=== PATIENT | female | born 1960 | race Caucasian/White ===

== ENCOUNTER → 2016-07-10 | Outpatient (CLI) | payer MEDICARE, MEDICAID ==
--- NOTE | 2016-07-10 12:40 | RAD ---
EXAM DESCRIPTION: XR KNEE 4 OR MORE VIEWS CLINICAL HISTORY: STRESS FRACTURE COMPARISON: April 14, 2016 IMPRESSION: Three standing views of the left knee show linear area of sclerosis involving the medial aspect of the proximal tibia that could represent healed stress fracture seen in this location on previous MRI. No depression or incongruity of the articular surface is identified. The osseous structures are diffusely osteopenic limiting evaluation for subtle nondisplaced fractures. No obvious joint effusion is seen. Electronically signed by: Michael Hunt MD 07/10/2016 12:37
== END ==
LOC: RAD 08:26
PROVIDERS: ATTEND Orthopaedic Surgery
DX: M84.30XD Stress fracture, unspecified site, subsequent encounter for fracture with routine healing (principal)

== ENCOUNTER → 2016-07-29 | Outpatient (CLI) | payer MEDICARE, MEDICAID ==
--- NOTE | 2016-07-29 13:55 | RAD ---
EXAM DESCRIPTION: XR CHEST 2 VIEWS CLINICAL HISTORY: COPD COMPARISON: None Available. TECHNIQUE: PA/lateral FINDINGS: There is no cardiac or pulmonary abnormality. The lungs are clear. The AP diameter of the chest is increased which can be seen in setting of emphysema. There is no effusion. IMPRESSION: No acute findings on today's study. Electronically signed by: Tk Rincon MD 07/29/2016 13:53
== END | disposition home or self-care (01) ==
LOC: YCFC.O 11:05
PROVIDERS: ATTEND Nurse Practitioner Family
DX: R30.0 Dysuria (principal); J44.9 Chronic obstructive pulmonary disease, unspecified

== ENCOUNTER 2016-08-05 16:00 | Emergency (ER) | payer MEDICARE, MEDICAID ==
[2016-08-05 16:31] VITALS: TEMP 98.9
[2016-08-05] MEDS ORDERED: LACTATED RINGERS 1,000 ML IVS ONE (16:38)
[2016-08-05] MEDS ORDERED: IPRATROPIUM/ALBUTEROL 3 ML VIAL NEB ONE (16:38)
--- NOTE | 2016-08-05 16:53 | RAD ---
EXAM DESCRIPTION: XR CHEST 1 VIEW CLINICAL HISTORY: hypotension COMPARISON: July 29, 2016 IMPRESSION: Single AP portable upright view of the chest shows cardiac silhouette and pulmonary vasculature to be within normal limits. Lungs are hyperinflated without acute appearing infiltrate or consolidation. Mild eventration of the right hemidiaphragm is seen. No pleural effusion or pneumothorax is identified. Electronically signed by: Michael Hunt MD 08/05/2016 16:51
[2016-08-05] MEDS ORDERED: ACETAMINOPHEN 325 MG TAB PO ONE (17:29)
[2016-08-05] MEDS ORDERED: THIAMINE HCL INJ 100 MG/ML VIAL ONE (17:42)
[2016-08-05] MEDS ORDERED: SODIUM CHLORIDE 0.9% 100ML 100 ML IVPB ONE (17:44)
[2016-08-05 19:15] VITALS: O2SAT 96
--- NOTE | 2016-08-05 19:51 | ED.PDOC ---
History of Present Illness - General Chief Complaint: Cardiovascular Problem Stated Complaint: low BP, dizziness Time Seen by Provider: 08/05/16 16:32 Source: patient Exam Limitations: no limitations - History of Present Illness Initial Comments: the patient is a 55-year-old female presenting to the emergency room secondary tomild headache, mild dizziness, generalized weakness and mild fatigue for the last 24 hours. The patient has upper respiratory tract symptoms and has been taking some aobp-cag-rveunhb cough medications. She additionally does take Depakote, Lyrica and trazodone chronically. Additionally she does have borderline hypotension at baseline along with borderline bradycardia at baseline. She is technically tilt positive here today and has had a history of being mildly dehydrated in the past. Mild sore throat and runny nose. No nausea or vomiting. No chest pain or shortness of breath. No syncope or near syncope. No palpitations. She is very thin. Timing/Duration: 24 hours Severity: mild Improving Factors: nothing Worsening Factors: nothing Associated Symptoms: weakness Allergies/Adverse Reactions: Allergies Cephalexin [From Keflex] Allergy (Verified 06/14/16 22:27) Home Medications: Ambulatory Orders Albuterol Sulfate Nebs [Proventil Nebs] 2.5 mg INH Q4-6H PRN 03/22/14 Budesonide-Formoterol Fumarate [Symbicort 160-4.5 Mcg/Act] 1 aer IN BID Potassium Chloride Microencaps [Klor-Con M10] 10 meq PO TIDFD 03/22/14 Pregabalin [Lyrica] 75 mg PO TID 03/22/14 Trazodone HCl 100 mg PO BEDTIME 03/22/14 Divalproex Sodium [Depakote] 150 - 275 mg PO BEDTIME 04/14/16 Sucralfate Tab [Carafate Tab] 1 gm PO TID 04/14/16 Review of Systems - Review of Systems Constitutional: States: malaise, weakness EENTM: States: nose congestion, throat pain - mild Respiratory: States: no symptoms reported Cardiology: States: no symptoms reported Gastrointestinal/Abdominal: States: no symptoms reported Genitourinary: States: no symptoms reported Musculoskeletal: States: no symptoms reported Skin: States: no symptoms reported Neurological: States: headache - mild, weakness Endocrine: States: no symptoms reported All other Systems: No Change from Baseline Past Medical History (General) - Patient Medical History Hx Seizures: No Hx Stroke: No Hx Asthma: No Hx of COPD: Yes Hx Cardiac Disorders: No Hx Congestive Heart Failure: No Hx Pacemaker: No Hx Hypertension: No Hx Diabetes: No Hx MRSA: No - Vaccination History Hx Tetanus, Diphtheria Vaccination: Yes Hx Influenza Vaccination: Yes - 2015 Hx Pneumococcal Vaccination: Yes - 2013 - Social History Hx Tobacco Use: Yes Hx Chewing Tobacco Use: No Hx Alcohol Use: No Hx Substance Use: No Hx Substance Use Treatment: No Hx Depression: Yes Hx Physical Abuse: No Hx Emotional Abuse: No Hx Suspected Abuse: No - Female History Patient is a Female of Child Bearing Age (10 -59 yrs old): No Patient : No Family Medical History - Family History Father Living Status: Age at (years of age): 65 Cause of : renal cancer Mother Living Status: Hx Family Asthma: No Hx Family Congestive Heart Failure: No Hx Family Hypertension: Yes Hx Family Stroke: No Hx Cardiac Disease: No Hx Family Diabetes: Yes Hx Family Cancer: No Physical Exam - Physical Exam General Appearance: Alert, Comfortable, No apparent distress Eye Exam: bilateral normal Ears, Nose, Throat: normal ENT inspection, normal pharynx Neck: non-tender, full range of motion, supple Respiratory: chest non-tender, lungs clear, normal breath sounds, no respiratory distress Cardiovascular/Chest: normal peripheral pulses, no edema, bradycardia - mild Peripheral Pulses: radial,right: 2+, radial,left: 2+, dorsalis pedis,right: 2+, dorsalis pedis,left: 2+ Gastrointestinal/Abdominal: non tender, soft Rectal Exam: deferred Back Exam: normal inspection, no CVA tenderness, no vertebral tenderness Extremity: normal range of motion, non-tender, normal inspection, no pedal edema , normal capillary refill 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 Progress - Progress Progress: 08/05/16 19:53 the patient is a 55-year-old female presenting with symptoms related to mild hypotension and bradycardia. she has apparently borderline hypotensive at baseline. The patient received a liter of IV fluids and some Tylenol and is feeling better at this time. Blood pressures have corrected. I suspect that the hypotension has been due to several factors including mild dehydration in combination with her normal daily medications in combination with her cold medication that she is recently been taking. Recommend she stop taking the cold medications. Also recommend that she hold her trazodone and Lyrica for 1 day. I recommend she follow-up with her primary care doctor towards the end of the week for reevaluation. If hypotension becomes a recurrent problem then an echocardiogram may be worthwhile. I have encouraged her to try to gain 5 pounds of weight. She can increase his salt intake and her food as well. Headache was relieved with Tylenol and IV fluids. If it recurs significantly in a normotensive state then further evaluation may be warranted. The patient is to follow-up with her primary care doctor before the end of the week. ER warnings are given for any acute worsening. - Results/Orders Results/Orders: 08/05/16 16:37 Telemetry .CONTINUOUS Vital Signs-Tilt PRN EKG Assessment ONCE 08/05/16 16:45 EKG STAT sinus bradycardia. Low voltage. Mild axis deviation likely related to body habitus. 08/05/16 19:06 UA [URINALYSIS] Stat grossly within normal limits. 08/06/16 16:38 Thiamine HCl Inj 100 mg Sodium Chloride 0.9% 100Ml [NS (NACL 0.9%) 100ml] 100 ml IVPB ONCE Laboratory Results - last 24 hr 08/05/16 08/05/16 16:50 19:07 WBC 6.5 RBC 4.71 Hgb 12.2 Hct 38.6 MCV 82.0 MCH 25.8 L MCHC 31.5 L RDW 18.6 H Plt Count 173 MPV 8.7 Absolute Neuts (auto) 3.90 Absolute Lymphs (auto) 2.00 Absolute Monos (auto) 0.60 Absolute Eos (auto) 0.10 Absolute Basos (auto) 0.00 Neutrophils % 59.3 Lymphocytes % 30.7 Monocytes % 8.8 Eosinophils % 0.9 L Basophils % 0.3 D-Dimer, Quantitative < 200 Sodium 138 Potassium 3.9 Chloride 104 Carbon Dioxide 27 Anion Gap 10.9 L BUN 17 Creatinine 0.50 L BUN/Creatinine Ratio 34.0 H Random Glucose 89 Serum Osmolality 276.7 Calcium 8.0 L Magnesium 1.2 L Total Bilirubin < 0.2 L AST 19 ALT 13 Alkaline Phosphatase 76 Creatine Kinase 91 CK-MB (CK-2) 3.8 CK-MB (CK-2) % Not Reportable Troponin I < 0.02 B-Natriuretic Peptide 14.7 Serum Total Protein 5.6 L Albumin 2.9 L Globulin 2.7 Albumin/Globulin Ratio 1.1 TSH 3.11 Urine Color Yellow Urine Appearance Clear Urine pH 5.5 Ur Specific Sibley <= 1.005 Urine Protein Negative Urine Glucose (UA) Negative Urine Ketones Negative Urine Blood Negative Urine Nitrite Negative Urine Bilirubin Negative Urine Urobilinogen 0.2 Ur Leukocyte Esterase Negative Urine RBC 0-1 Urine WBC 0-1 Ur Epithelial Cells 0-1 Amorphous Sediment 4+ Urine Bacteria Rare chest x-ray shows changes consistent with COPD. Departure - Departure Clinical Impression: Hypotension due to drugs Disposition: Discharge to Home or Self Care Condition: Fair Departure Forms: ED Discharge - Pt. Copy, Patient Portal Self Enrollment Diet: regular diet Activity: increase activity as tolerated Referrals: Luh Pina NP [Primary Care Provider] - 1-5 Days Home Medications: Ambulatory Orders Albuterol Sulfate Nebs [Proventil Nebs] 2.5 mg INH Q4-6H PRN 03/22/14 Budesonide-Formoterol Fumarate [Symbicort 160-4.5 Mcg/Act] 1 aer IN BID Potassium Chloride Microencaps [Klor-Con M10] 10 meq PO TIDFD 03/22/14 Pregabalin [Lyrica] 75 mg PO TID 03/22/14 Trazodone HCl 100 mg PO BEDTIME 03/22/14 Divalproex Sodium [Depakote] 150 - 275 mg PO BEDTIME 04/14/16 Sucralfate Tab [Carafate Tab] 1 gm PO TID 04/14/16 Additional Instructions: the patient is a 55-year-old female presenting with symptoms related to mild hypotension and bradycardia. she has apparently borderline hypotensive at baseline. The patient received a liter of IV fluids and some Tylenol and is feeling better at this time. Blood pressures have corrected. I suspect that the hypotension has been due to several factors including mild dehydration in combination with her normal daily medications in combination with her cold medication that she is recently been taking. Recommend she stop taking the cold medications. Also recommend that she hold her trazodone and Lyrica for 1 day. I recommend she follow-up with her primary care doctor towards the end of the week for reevaluation. If hypotension becomes a recurrent problem then an echocardiogram may be worthwhile. I have encouraged her to try to gain 5 pounds of weight. She can increase his salt intake and her food as well. Headache was relieved with Tylenol and IV fluids. If it recurs significantly in a normotensive state then further evaluation may be warranted. The patient is to follow-up with her primary care doctor before the end of the week. ER warnings are given for any acute worsening.
[2016-08-05 20:44] VITALS: BP 119/58
[2016-08-06] MEDS ORDERED: THIAMINE HCL INJ 100 MG in SODIUM CHLORIDE 0.9% 100ML 100 ML IVPB ONE (16:38)
== END 2016-08-05 20:43 | disposition home or self-care (01) ==
LOC: ER 16:00
DX: I95.2 Hypotension due to drugs (principal); J44.9 Chronic obstructive pulmonary disease, unspecified; R00.1 Bradycardia, unspecified; Z79.899 Other long term (current) drug therapy; Z88.8 Allergy status to other drugs, medicaments and biological substances; Z87.891 Personal history of nicotine dependence; E86.0 Dehydration
CPT/HCPCS: 36415; 71010; 80053; 81001; 82550; 82553; 83735; 83880; 84443; 84484; 85025; 85379; J3411; J7050; J7120; J7620

== ENCOUNTER → 2016-08-15 | Outpatient (CLI) | payer MEDICARE, MEDICAID ==
--- NOTE | 2016-08-16 07:43 | RAD ---
EXAM DESCRIPTION: Left knee, three views. CLINICAL HISTORY: Stress fracture. Knee pain. FINDINGS/IMPRESSION: Osteopenia. Subtle minimal sclerosis in the medial tibia posterior at the metaphysis epiphysis junction. This could be stress related edema. Consider MRI evaluation No advanced osteoarthritis. No joint effusion Electronically signed by: Marcellus Sommers MD 08/16/2016 07:41
== END | disposition home or self-care (01) ==
LOC: RAD 08:30
PROVIDERS: ATTEND Orthopaedic Surgery
DX: M84.30XD Stress fracture, unspecified site, subsequent encounter for fracture with routine healing (principal)

== ENCOUNTER → 2016-09-11 | Outpatient (CLI) | payer MEDICARE, MEDICAID ==
--- NOTE | 2016-09-11 08:41 | RAD ---
EXAM DESCRIPTION: Left knee, 3 views CLINICAL HISTORY: Knee pain. Stress fracture FINDINGS/ IMPRESSION: Comparison 08/15/2016 The sclerosis involving the medial tibia is less than on the prior study compatible with improved stress injury. No linear fracture. There is still subtle sclerosis Osteopenia without fracture or acute osteochondral lesion otherwise seen. No joint effusion. Small intra-articular body in the posterior joint, stable. Faint chondrocalcinosis patellofemoral and lateral femorotibial Electronically signed by: Marcellus Sommers MD 09/11/2016 8:41 AM CDT
== END ==
LOC: RAD 08:00
PROVIDERS: ATTEND Orthopaedic Surgery
DX: M84.30XD Stress fracture, unspecified site, subsequent encounter for fracture with routine healing (principal)

== ENCOUNTER → 2016-09-23 | Outpatient (CLI) | payer MEDICARE, MEDICAID ==
--- NOTE | 2016-09-23 15:16 | RAD ---
EXAM DESCRIPTION: Toes,Left CLINICAL HISTORY: 55 years, Female, PAIN IN LEFT TOES COMPARISON: None. FINDINGS: Left toes demonstrate no fracture or other acute bony abnormalities. There is generalized osteopenia. Joint spaces soft tissues unremarkable. IMPRESSION: Unremarkable left toes except there is generalized osteopenia. Electronically signed by: Roberto Carlos Lawson MD 09/23/2016 3:16 PM CDT
== END | disposition home or self-care (01) ==
LOC: YCFC.O 13:08
PROVIDERS: ATTEND Nurse Practitioner Family
DX: K21.9 Gastro-esophageal reflux disease without esophagitis (principal); M79.675 Pain in left toe(s)

== ENCOUNTER 2016-10-22 16:18 | Emergency (ER) | payer MEDICARE, MEDICAID ==
[2016-10-22 17:04] VITALS: TEMP 98.7
[2016-10-22] MEDS ORDERED: SODIUM CHLORIDE 0.9% 1000ML 1,000 ML IVS ONE (17:05)
--- NOTE | 2016-10-22 17:08 | ED.PDOC ---
History of Present Illness - General Chief Complaint: Respiratory Problem Stated Complaint: cough headache nausea right arm pain Time Seen by Provider: 10/22/16 16:59 Source: patient, RN notes reviewed, Vital Signs reviewed Exam Limitations: no limitations - History of Present Illness Initial Comments: Patient presents with c/o cough X 5 days, R arm pain X 4 days, HURD today and leg cramps for a couple days. No fever or chills. Hx of COPD. Whole R arm hurts, not one spot in particular. Cough is productive of green sputum. HURD is generalized and pounding. Timing/Duration: 1 week Severity: moderate Improving Factors: nothing Worsening Factors: nothing Associated Symptoms: cough, headaches, malaise, nausea/vomiting, weakness Allergies/Adverse Reactions: Allergies Cephalexin [From Keflex] Allergy (Verified 10/22/16 17:04) Home Medications: Ambulatory Orders Albuterol Sulfate Nebs [Proventil Nebs] 2.5 mg INH Q4-6H PRN 03/22/14 Budesonide-Formoterol Fumarate [Symbicort 160-4.5 Mcg/Act] 1 aer IN BID Potassium Chloride Microencaps [Klor-Con M10] 10 meq PO TIDFD 03/22/14 Pregabalin [Lyrica] 75 mg PO TID 03/22/14 Trazodone HCl 100 mg PO BEDTIME 03/22/14 Divalproex Sodium [Depakote] 150 - 275 mg PO BEDTIME 04/14/16 Sucralfate Tab [Carafate Tab] 1 gm PO TID 04/14/16 Azithromycin Tab [Zithromax] 250 mg PO QD #4 tab 10/22/16 Review of Systems - Review of Systems Constitutional: States: malaise, weakness. Denies: chills, fever EENTM: States: no symptoms reported Respiratory: States: cough, short of breath Cardiology: States: no symptoms reported. Denies: chest pain, palpitations, syncope Gastrointestinal/Abdominal: States: nausea, vomiting. Denies: abdominal pain, diarrhea Musculoskeletal: States: other - R arm pain - whole arm Skin: States: no symptoms reported Neurological: States: headache, numbness - occasionally in right hand. Denies: paresthesia, tingling, tremors, weakness Endocrine: Denies: no symptoms reported Past Medical History (General) - Patient Medical History Hx Seizures: No Hx Stroke: No Hx Asthma: No Hx of COPD: Yes Hx Cardiac Disorders: No Hx Congestive Heart Failure: No Hx Pacemaker: No Hx Hypertension: No Hx Diabetes: No Hx MRSA: No Surgical History: Hysterectomy, other - Vaccination History Hx Tetanus, Diphtheria Vaccination: Yes Hx Influenza Vaccination: Yes Hx Pneumococcal Vaccination: Yes - Social History Hx Tobacco Use: Yes Hx Chewing Tobacco Use: No Hx Alcohol Use: No Hx Substance Use: No Hx Substance Use Treatment: No Hx Depression: Yes Hx Physical Abuse: No Hx Emotional Abuse: No Hx Suspected Abuse: No - Activities of Daily Living Hospice Agency (if applicable):: None - Female History Patient is a Female of Child Bearing Age (10 -59 yrs old): No Patient : No Family Medical History - Family History Father Living Status: Age at (years of age): 65 Cause of : renal cancer Mother Living Status: Hx Family Asthma: No Hx Family Congestive Heart Failure: No Hx Family Hypertension: Yes Hx Family Stroke: No Hx Cardiac Disease: No Hx Family Diabetes: Yes Hx Family Cancer: No Physical Exam - Physical Exam General Appearance: Alert, Comfortable, Frail, No apparent distress, Well Groomed Eye Exam: bilateral normal Ears, Nose, Throat: hearing grossly normal, normal ENT inspection, normal pharynx Neck: non-tender, full range of motion, supple, normal inspection Respiratory: chest non-tender, no respiratory distress, no accessory muscle use , decreased breath sounds - Bilateral bases Cardiovascular/Chest: regular rate, rhythm, no edema, no gallop, no JVD, no murmur Extremity: normal range of motion, normal inspection, other - whole R arm from shoulder to wrist tender to palpation 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 She is feeling better after IV fluids but still has a HURD. Will start Antibiotics for probable bronchitis and give Ibuprofen for HURD. - Results/Orders Results/Orders: Laboratory Tests 10/22/16 10/22/16 17:10 17:10 WBC 8.2 RBC 4.35 Hgb 11.9 L Hct 36.7 MCV 84.3 MCH 27.3 MCHC 32.4 L RDW 16.4 H Plt Count 201 MPV 8.2 Absolute Neuts (auto) 5.00 Absolute Lymphs (auto) 2.20 Absolute Monos (auto) 0.80 Absolute Eos (auto) 0.10 Absolute Basos (auto) 0.10 Neutrophils % 60.3 Lymphocytes % 27.2 Monocytes % 10.0 H Eosinophils % 1.4 Basophils % 1.1 Sodium 138 Potassium 3.5 L Chloride 107 Carbon Dioxide 24 Anion Gap 10.5 L BUN 13 Creatinine 0.44 L BUN/Creatinine Ratio 29.5 H Random Glucose 91 Serum Osmolality 275.4 Calcium 8.4 Total Bilirubin 0.4 AST 21 ALT 13 Alkaline Phosphatase 54 Serum Total Protein 5.3 L Albumin 3.0 L Globulin 2.3 Albumin/Globulin Ratio 1.3 - EKG/XRAY/CT XRAY: chest - No acute process Departure - Departure Clinical Impression: Dehydration, Acute bronchitis Time of Disposition: 18:14 Disposition: Discharge to Home or Self Care Condition: Good Departure Forms: ED Discharge - Pt. Copy, Patient Portal Self Enrollment Instructions: DI for Acute Bronchitis Referrals: Luh Pina NP [Primary Care Provider] - 1-2 Weeks Prescriptions: Azithromycin Tab [Zithromax] 250 mg PO QD #4 tab Home Medications: Ambulatory Orders Albuterol Sulfate Nebs [Proventil Nebs] 2.5 mg INH Q4-6H PRN 03/22/14 Budesonide-Formoterol Fumarate [Symbicort 160-4.5 Mcg/Act] 1 aer IN BID Potassium Chloride Microencaps [Klor-Con M10] 10 meq PO TIDFD 03/22/14 Pregabalin [Lyrica] 75 mg PO TID 03/22/14 Trazodone HCl 100 mg PO BEDTIME 03/22/14 Divalproex Sodium [Depakote] 150 - 275 mg PO BEDTIME 04/14/16 Sucralfate Tab [Carafate Tab] 1 gm PO TID 04/14/16 Azithromycin Tab [Zithromax] 250 mg PO QD #4 tab 10/22/16
--- NOTE | 2016-10-22 17:28 | RAD ---
PROCEDURE: Chest,2 Views CLINICAL HISTORY: Cough X 5 days INDICATION: Same as above COMPARISON: August 05, 2016 TECHNIQUE: PA and and lateral chest radiographs were obtained. FINDINGS: The lung herrera are well inflated. There are no discrete airspace infiltrates, pneumothoraces or pleural effusions. The pulmonary vascularity is normal The cardiomediastinal silhouette is unremarkable for patient's age and sex. IMPRESSION: There is no acute pleural-parenchymal process seen in the imaged lung herrera. Place of interpretation: [facility]. Electronically signed by: Sadiq Vaca MD 10/22/2016 5:27 PM CDT
[2016-10-22] MEDS ORDERED: IBUPROFEN 200 MG TAB PO ONE (18:12)
[2016-10-22] MEDS ORDERED: AZITHROMYCIN 250 MG TAB PO ONE (18:13)
[2016-10-22 18:32] VITALS: BP 117/75; O2SAT 91
== END 2016-10-22 18:32 | disposition home or self-care (01) ==
LOC: ER 16:18
DX: J44.0 Chronic obstructive pulmonary disease with (acute) lower respiratory infection (principal); J20.9 Acute bronchitis, unspecified; E86.0 Dehydration; F32.9 Major depressive disorder, single episode, unspecified; Z87.891 Personal history of nicotine dependence; Z79.899 Other long term (current) drug therapy; Z88.3 Allergy status to other anti-infective agents
CPT/HCPCS: 36415; 71020; 80053; 85025; J7030; Q0144

== ENCOUNTER → 2016-11-13 | Outpatient (CLI) | payer MEDICARE, MEDICAID ==
--- NOTE | 2016-11-15 16:17 | MAM ---
History: Well woman exam. Date of exam: 11/13/2016 Services provided: Bilateral full field digital screening mammography. CAD, the images were reviewed with R2 computer aided detection. FINDINGS: Glandular tissue is scattered glandular contour with increased mammographic density. No prior study is currently available for comparison. Scattered grouped calcifications are present bilaterally, primarily rounded in morphology. No architectural distortion or dominant mass. IMPRESSION: Benign exam Recommendation: Routine annual mammography BIRAD CATEGORY: 2 BENIGN Electronically signed by: Shannon Henderson MD 11/15/2016 4:18 PM CDT Workstation: [id number]
== END ==
LOC: MAMMO 08:36
PROVIDERS: ATTEND Nurse Practitioner Family
DX: Z12.31 Encounter for screening mammogram for malignant neoplasm of breast (principal)

== ENCOUNTER → 2016-11-28 | Outpatient (CLI) | payer MEDICARE, MEDICAID | END | disposition home or self-care (01) | LOC: RAD 14:22 | PROVIDERS: ATTEND Nurse Practitioner Family | DX: M79.601 Pain in right arm (principal) ==

== ENCOUNTER 2017-01-04 19:51 | Emergency (ER) | payer MEDICARE, MEDICAID ==
--- NOTE | 2017-01-04 21:22 | ED.PDOC ---
History of Present Illness - General Chief Complaint: GI Problem Stated Complaint: diarrhea,low back pain,headache Time Seen by Provider: 01/04/17 19:51 Information Source: patient, Vital Signs reviewed Exam Limitations: no limitations - History of Present Illness Initial Comments: Jumana Samayoa 56 y/o female stated she had onset of diarrhea x 3,low back pain,and headache since yesterday.No N/V ,fever ,chills.No abdominal pains. Abdominal Pain Onset Location: other - none Pain Radiation: no radiation Timing/Duration: 24 hours Improving Factors: nothing Worsening Factors: eating Associated Symptoms: back pain, headache Review of Systems - Review of Systems Constitutional: States: no symptoms reported EENTM: States: no symptoms reported Respiratory: States: no symptoms reported Cardiology: States: no symptoms reported Gastrointestinal/Abdominal: States: see HPI Musculoskeletal: States: see HPI Neurological: States: headache Endocrine: States: no symptoms reported Past Medical History (General) - Patient Medical History Hx Seizures: No Hx Stroke: No Hx Asthma: No Hx of COPD: Yes Hx Cardiac Disorders: No Hx Congestive Heart Failure: No Hx Pacemaker: No Hx Hypertension: No Hx Diabetes: No Hx MRSA: No Surgical History: other - hysterectomy - Vaccination History Hx Tetanus, Diphtheria Vaccination: Yes Hx Influenza Vaccination: Yes Hx Pneumococcal Vaccination: Yes Immunizations Up to Date: Yes - Social History Hx Tobacco Use: Yes Hx Chewing Tobacco Use: No Hx Alcohol Use: No Hx Substance Use: No Hx Substance Use Treatment: No Hx Depression: No Feels Threatened In Home Enviroment: No Feels Threatened In a Relationship: No Hx Physical Abuse: No Hx Emotional Abuse: No Hx Suspected Abuse: No - Activities of Daily Living Hospice Agency (if applicable):: None - Female History Patient : No Family Medical History - Family History Father Living Status: Age at (years of age): 65 Cause of : renal cancer Mother Living Status: Hx Family Asthma: No Hx Family Congestive Heart Failure: No Hx Family Hypertension: Yes Hx Family Stroke: No Hx Cardiac Disease: No Hx Family Diabetes: Yes Hx Family Cancer: No Physical Exam - Physical Exam General Appearance: Alert, Comfortable, No apparent distress Eyes, Ears, Nose, Throat Exam: PERRL/EOMI, normal ENT inspection, TMs normal, pharynx normal Neck: non-tender, full range of motion, supple Respiratory: chest non-tender, no respiratory distress, decreased breath sounds Cardiovascular/Chest: normal peripheral pulses, regular rate, rhythm, no murmur Peripheral Pulses: No deficit Gastrointestinal/Abdominal: normal bowel sounds, non tender, soft, no organomegaly Extremity: normal range of motion, non-tender, normal inspection, no pedal edema , no calf tenderness Neurologic: no motor/sensory deficits, alert, normal mood/affect, oriented x 3 Skin Exam: normal color, warm/dry Lymphatic: no adenopathy Special Observations: No evidence of discomfort, Smiling Progress - Progress Progress: 01/04/17 23:38 Vital Signs - 8 hr 01/04/17 19:51 Temperature 98.5 F Pulse Rate [ 67 monitor] Respiratory 18 Rate Blood Pressure 110/70 [left upper arm ] O2 Sat by Pulse 90 L Oximetry 01/04/17 21:30 URINE CULTURE W/COLONY COUNT Stat Laboratory Results - last 24 hr 01/04/17 01/04/17 01/04/17 21:30 21:34 21:34 WBC 4.9 RBC 4.78 Hgb 12.8 Hct 40.1 MCV 83.8 MCH 26.7 L MCHC 31.9 L RDW 16.8 H Plt Count 192 MPV 8.8 Absolute Neuts (auto) 2.50 Absolute Lymphs (auto) 1.80 Absolute Monos (auto) 0.60 Absolute Eos (auto) 0.10 Absolute Basos (auto) 0.00 Neutrophils % 50.2 Lymphocytes % 35.8 Monocytes % 12.1 H Eosinophils % 1.3 Basophils % 0.6 Sodium 143 Potassium 4.0 Chloride 107 Carbon Dioxide 29 Anion Gap 11.0 L BUN 13 Creatinine < 0.40 L BUN/Creatinine Ratio 32.0 H Random Glucose 108 H Serum Osmolality 285.6 Calcium 9.1 Total Bilirubin 0.4 AST 20 ALT 13 Alkaline Phosphatase 53 Serum Total Protein 5.9 L Albumin 3.2 Globulin 2.7 Albumin/Globulin Ratio 1.2 Urine Color Yellow Urine Appearance Clear Urine pH 5.5 Ur Specific [place] <= 1.005 Urine Protein Negative Urine Glucose (UA) Negative Urine Ketones Negative Urine Blood Negative Urine Nitrite Negative Urine Bilirubin Negative Urine Urobilinogen 0.2 Ur Leukocyte Esterase Moderate H Urine RBC 0-1 Urine WBC 10-20 H Ur Epithelial Cells 1-3 Amorphous Sediment Trace Urine Bacteria Rare - EKG/XRAY/CT CT Ordered: No Departure - Departure Clinical Impression: Diarrhea, Backache symptom Headache Qualifiers: Headache type: unspecified Headache chronicity pattern: episodic headache Intractability: not intractable Qualified Code(s): R51 - Headache Urinary tract infection Qualifiers: Urinary tract infection type: site unspecified Hematuria presence: without hematuria Qualified Code(s): N39.0 - Urinary tract infection, site not specified Time of Disposition: 23:39 Disposition: Discharge to Home or Self Care Departure Forms: ED Discharge - Pt. Copy, Patient Portal Self Enrollment Diet: other - Avoid greasy,spicy,dairy foods until better Referrals: Luh Pina NP [Primary Care Provider] - 1-2 Weeks Prescriptions: Nitrofurantoin Monohydrate Mac [Macrobid] 100 mg PO BID #10 cap Home Medications: Ambulatory Orders Albuterol Sulfate Nebs [Proventil Nebs] 2.5 mg INH Q4-6H PRN 03/22/14 Budesonide-Formoterol Fumarate [Symbicort 160-4.5 Mcg/Act] 1 aer IN BID Potassium Chloride Microencaps [Klor-Con M10] 10 meq PO TIDFD 03/22/14 Pregabalin [Lyrica] 75 mg PO TID 03/22/14 Trazodone HCl 100 mg PO BEDTIME 03/22/14 Divalproex Sodium [Depakote] 150 - 275 mg PO BEDTIME 04/14/16 Sucralfate Tab [Carafate Tab] 1 gm PO TID 04/14/16 Azithromycin Tab [Zithromax] 250 mg PO QD #4 tab 10/22/16 Nitrofurantoin Monohydrate Mac [Macrobid] 100 mg PO BID #10 cap 01/04/17 Additional Instructions: Follow up with primary md 01/06/2017
[2017-01-04] MEDS ORDERED: ORPHENADRINE CITRATE 30 MG/ML AMP IV ONE (21:28)
[2017-01-04] MEDS ORDERED: KETOROLAC TROMETHAMINE INJ 30 MG/ML VIAL IV ONE (21:28)
[2017-01-04] MEDS ORDERED: SODIUM CHLORIDE 0.9% 1000ML 1,000 ML IVS ONE (21:29)
[2017-01-04] MEDS ORDERED: NITROFURANTOIN MONO (ER DISP) 100 MG CAP PO ONE (23:41)
[2017-01-05 00:12] VITALS: BP 130/70; TEMP 98; O2SAT 98
== END 2017-01-04 23:51 | disposition home or self-care (01) ==
LOC: ER 19:51
DX: R19.7 Diarrhea, unspecified (principal); N39.0 Urinary tract infection, site not specified; R51 Headache; M54.9 Dorsalgia, unspecified; J44.9 Chronic obstructive pulmonary disease, unspecified; Z87.891 Personal history of nicotine dependence
CPT/HCPCS: 36415; 80053; 81001; 85025; 87086; J1885; J2360; J7030

== ENCOUNTER → 2017-01-30 | Outpatient (CLI) | payer MEDICARE, MEDICAID | END | disposition home or self-care (01) | LOC: YCFC.O 16:01 | PROVIDERS: ATTEND Nurse Practitioner Family | DX: N39.0 Urinary tract infection, site not specified (principal); F50.89 Other specified eating disorder ==

== ENCOUNTER → 2017-02-14 | Outpatient (CLI) | payer MEDICARE, MEDICAID | END | disposition home or self-care (01) | LOC: YCFC.O 14:37 | PROVIDERS: ATTEND Nurse Practitioner Family | DX: R30.0 Dysuria (principal) ==

== ENCOUNTER → 2017-04-18 | Outpatient (CLI) | payer MEDICARE, MEDICAID ==
--- NOTE | 2017-04-20 00:31 | RAD ---
Examination: XR KNEE 4 OR MORE VIEWS dated 04/18/2017 12:00 AM CDT History: STRESS FX Comparison: 09/11/2016 Technique: Four views of the left knee FINDINGS AND IMPRESSION: Stable band of sclerosis involving the proximal tibial shaft which may be seen with a healed stress fracture. There is mild tricompartmental joint space loss with chondrocalcinosis. Electronically signed by: Maximiliano Boss MD 04/20/2017 12:30 AM CDT
== END | disposition home or self-care (01) ==
LOC: RAD 07:49
PROVIDERS: ATTEND Orthopaedic Surgery
DX: M84.30XD Stress fracture, unspecified site, subsequent encounter for fracture with routine healing (principal)

== ENCOUNTER → 2017-05-20 | Outpatient (CLI) | payer MEDICARE, MEDICAID | END | disposition home or self-care (01) | LOC: YCFC.O 14:47 | PROVIDERS: ATTEND Nurse Practitioner Family | DX: R50.9 Fever, unspecified (principal) ==

== ENCOUNTER 2017-07-11 17:40 | Emergency (ER) | payer MEDICARE, MEDICAID | END 2017-07-11 18:16 | disposition left against medical advice (07) | LOC: ER 17:40 | DX: Z53.21 Procedure and treatment not carried out due to patient leaving prior to being seen by health care provider (principal) ==

== ENCOUNTER 2017-07-11 20:46 | Emergency (ER) | payer MEDICARE, MEDICAID ==
[2017-07-11] MEDS ORDERED: LACTATED RINGERS 1,000 ML IVS ONE (21:18)
[2017-07-11] MEDS ORDERED: MORPHINE SULFATE INJ 10 MG/ML VIAL IV ONE (21:18)
[2017-07-11] MEDS ORDERED: PROMETHAZINE HCL INJ 25 MG/ML VIAL IM ONE (21:18)
--- NOTE | 2017-07-11 21:19 | ED.PDOC ---
History of Present Illness - General Chief Complaint: General Stated Complaint: diarrhea/body aches Time Seen by Provider: 07/11/17 21:16 Source: patient Exam Limitations: no limitations - History of Present Illness Initial Comments: Jumana Samayoa 56 y/o female stated that she had been having dysuria for the last 5 days and was prescribed antibiotics took it for 3 days but still feeling not better yesterday had started having flu like symptoms -body aches,no appetite but no chills or fever had 3 loose stools today no nausea or vomiting.Also with dry cough for one week. Timing/Duration: other - see hpi Severity: moderate Improving Factors: nothing Worsening Factors: nothing Associated Symptoms: other - see hpi Allergies/Adverse Reactions: Allergies Cephalexin [From Keflex] Allergy (Verified 01/04/17 20:33) Home Medications: Ambulatory Orders Albuterol Sulfate Nebs [Proventil Nebs] 2.5 mg INH Q4-6H PRN 03/22/14 Budesonide-Formoterol Fumarate [Symbicort 160-4.5 Mcg/Act] 1 aer IN BID Potassium Chloride Microencaps [Klor-Con M10] 10 meq PO TIDFD 03/22/14 Pregabalin [Lyrica] 75 mg PO TID 03/22/14 Trazodone HCl 100 mg PO BEDTIME 03/22/14 Divalproex Sodium [Depakote] 150 - 275 mg PO BEDTIME 04/14/16 Sucralfate Tab [Carafate Tab] 1 gm PO TID 04/14/16 Azithromycin Tab [Zithromax] 250 mg PO QD #4 tab 10/22/16 Nitrofurantoin Monohydrate Mac [Macrobid] 100 mg PO BID #10 cap 01/04/17 Ciprofloxacin [Cipro] 250 mg PO Q12H #14 tablet 07/11/17 SUMAtriptan SUCCINATE [Imitrex] 50 mg PO ONCE PRN #14 tab 07/11/17 Review of Systems - Review of Systems Constitutional: States: no symptoms reported EENTM: States: no symptoms reported Respiratory: States: no symptoms reported Cardiology: States: no symptoms reported Gastrointestinal/Abdominal: States: see HPI Genitourinary: States: see HPI Musculoskeletal: States: see HPI Skin: States: no symptoms reported Neurological: States: no symptoms reported All other Systems: Reviewed and Negative, No Change from Baseline Past Medical History (General) - Patient Medical History Hx Seizures: No Hx Stroke: No Hx Asthma: No Hx of COPD: Yes Hx Cardiac Disorders: No Hx Congestive Heart Failure: No Hx Pacemaker: No Hx Hypertension: No Hx Diabetes: No Hx MRSA: No Surgical History: other - hysterectomy - Vaccination History Hx Tetanus, Diphtheria Vaccination: Yes Hx Influenza Vaccination: Yes Hx Pneumococcal Vaccination: Yes - Social History Hx Tobacco Use: Yes Hx Chewing Tobacco Use: No Hx Alcohol Use: No Hx Substance Use: No Hx Substance Use Treatment: No Hx Depression: No Hx Physical Abuse: No Hx Emotional Abuse: No Hx Suspected Abuse: No - Activities of Daily Living Patient Lives Alone: No Grooming Ability: Independent Eating (Feeding) Ability: Independent Toileting Ability: Independent - Female History Patient : No Family Medical History - Family History Father Living Status: Age at (years of age): 65 Cause of : renal cancer Mother Living Status: Hx Family Asthma: No Hx Family Congestive Heart Failure: No Hx Family Hypertension: Yes Hx Family Stroke: No Hx Cardiac Disease: No Hx Family Diabetes: Yes Hx Family Cancer: No Physical Exam - Physical Exam General Appearance: Alert, Comfortable Eye Exam: bilateral normal Ears, Nose, Throat: hearing grossly normal, normal ENT inspection, normal pharynx Neck: non-tender, full range of motion, supple Respiratory: chest non-tender, lungs clear, normal breath sounds Cardiovascular/Chest: normal peripheral pulses, regular rate, rhythm, no murmur Peripheral Pulses: radial,right: 2+, radial,left: 2+ Gastrointestinal/Abdominal: normal bowel sounds, non tender, soft, no organomegaly Back Exam: no CVA tenderness, no vertebral tenderness Extremity: no pedal edema, no calf tenderness Neurologic: alert, oriented x 3 Skin Exam: normal color, warm/dry Lymphatic: no adenopathy Progress - Progress Progress: 07/11/17 21:50 Last Vital Signs Temp 98.2 F 07/11/17 21:10 Pulse 72 07/11/17 21:10 Resp 18 07/11/17 21:10 BP 87/56 07/11/17 21:10 Pulse Ox 92 L 07/11/17 21:10 - Results/Orders Results/Orders: Laboratory Tests 07/11/17 07/11/17 07/11/17 22:00 22:00 22:15 WBC 6.7 RBC 4.83 Hgb 16.2 H Hct 48.2 H MCV 99.7 H MCH 33.5 H MCHC 33.6 RDW 13.0 Plt Count 178 MPV 9.2 Absolute Neuts (auto) 3.70 Absolute Lymphs (auto) 2.10 Absolute Monos (auto) 0.80 Absolute Eos (auto) 0.10 Absolute Basos (auto) 0.00 Neutrophils % 54.9 Lymphocytes % 31.7 Monocytes % 11.5 H Eosinophils % 1.3 Basophils % 0.6 Sodium 137 Potassium 4.4 Chloride 104 Carbon Dioxide 26 Anion Gap 11.4 L BUN 20 H Creatinine < 0.40 L BUN/Creatinine Ratio 50.0 H Random Glucose 106 H Serum Osmolality 276.9 Calcium 8.8 Total Bilirubin 0.5 AST 97 H ALT 128 H Alkaline Phosphatase 196 H Serum Total Protein 6.0 L Albumin 3.0 L Globulin 3.0 Albumin/Globulin Ratio 1.0 L Urine Color Yellow Urine Appearance Sl cloudy Urine pH 5.5 Ur Specific [place] 1.020 Urine Protein Negative Urine Glucose (UA) Negative Urine Ketones 15 H Urine Blood Negative Urine Nitrite Negative Urine Bilirubin Moderate Urine Urobilinogen 0.2 Ur Leukocyte Esterase Small H Urine RBC 0-1 Urine WBC 10-20 H Ur Epithelial Cells 10-20 Amorphous Sediment 2+ Urine Bacteria 2+ H Urine Mucus Trace - EKG/XRAY/CT XRAY: chest - pulmonary nodule right upper lobe Departure - Departure Clinical Impression: Polycythemia secondary to smoking, Pulmonary nodule, right Urinary tract infection Qualifiers: Urinary tract infection type: site unspecified Hematuria presence: without hematuria Qualified Code(s): N39.0 - Urinary tract infection, site not specified Time of Disposition: 23:20 Disposition: Discharge to Home or Self Care Condition: Fair Departure Forms: ED Discharge - Pt. Copy, Patient Portal Self Enrollment Instructions: DI for Pulmonary Nodule, Reasons to Quit Smoking, All Forms of Smoking Are Bad for You Referrals: Terri Bedolla NP [Primary Care Provider] - 1-2 Weeks Prescriptions: Ciprofloxacin [Cipro] 250 mg PO Q12H #14 tablet SUMAtriptan SUCCINATE [Imitrex] 50 mg PO ONCE PRN #14 tab PRN Reason: Headache/Migraine Pain Home Medications: Ambulatory Orders Albuterol Sulfate Nebs [Proventil Nebs] 2.5 mg INH Q4-6H PRN 03/22/14 Budesonide-Formoterol Fumarate [Symbicort 160-4.5 Mcg/Act] 1 aer IN BID Potassium Chloride Microencaps [Klor-Con M10] 10 meq PO TIDFD 03/22/14 Pregabalin [Lyrica] 75 mg PO TID 03/22/14 Trazodone HCl 100 mg PO BEDTIME 03/22/14 Divalproex Sodium [Depakote] 150 - 275 mg PO BEDTIME 04/14/16 Sucralfate Tab [Carafate Tab] 1 gm PO TID 04/14/16 Azithromycin Tab [Zithromax] 250 mg PO QD #4 tab 10/22/16 Nitrofurantoin Monohydrate Mac [Macrobid] 100 mg PO BID #10 cap 01/04/17 Ciprofloxacin [Cipro] 250 mg PO Q12H #14 tablet 07/11/17 SUMAtriptan SUCCINATE [Imitrex] 50 mg PO ONCE PRN #14 tab 07/11/17 Additional Instructions: NEED TO FOLLOW UP WITH PRIMARY Md 07/14/2017 call for your appointment; DISCONTINUE ORAL IRON PILLS
[2017-07-11 21:41] VITALS: TEMP 98.2; O2SAT 92
--- NOTE | 2017-07-11 22:52 | RAD ---
Examination: XR CHEST 1 VIEW dated 07/11/2017 9:41 PM PET HOUSE SITTER History: cough Comparison: 10/22/2016 Technique: Frontal view of the chest Findings: Suspected 9 mm pulmonary nodule within the right midlung zone, region of the right seventh rib posteriorly. No focal airspace consolidation. No pneumothorax or pleural effusion. The cardiomediastinal silhouette is within normal limits. Impression: Suspected 9 mm right upper lobe pulmonary nodule. Consider chest CT for further evaluation. Otherwise no acute findings. Electronically signed by: Maximiliano Boss MD 07/11/2017 10:51 PM PET HOUSE SITTER
[2017-07-11] MEDS ORDERED: levoFLOXacin 500 MG TAB PO ONE (23:18)
[2017-07-11 23:45] VITALS: BP 97/60
== END 2017-07-11 23:46 | disposition home or self-care (01) ==
LOC: ER 20:46
DX: N39.0 Urinary tract infection, site not specified (principal); R91.8 Other nonspecific abnormal finding of lung field; D75.1 Secondary polycythemia; F17.200 Nicotine dependence, unspecified, uncomplicated; J44.9 Chronic obstructive pulmonary disease, unspecified
CPT/HCPCS: 36415; 71045; 80053; 81001; 85025; 87086; J2270; J2550; J7120

== ENCOUNTER → 2017-07-18 | Outpatient (CLI) | payer MEDICARE, MEDICAID ==
--- NOTE | 2017-07-21 08:57 | CT ---
EXAM DESCRIPTION: Chest w/o Contrast CLINICAL HISTORY: 56 years Female, PULMONARY NODULE COMPARISON: Chest x-ray dated July 11, 2017. TECHNIQUE: Noncontrast multidetector CT imaging of the thorax was performed. Multiplanar reconstructions were generated. This exam was performed according to our departmental dose-optimization program which includes automated exposure control, adjustment of the mA and/or kV according to patient size and/or use of iterative reconstruction technique. FINDINGS: Solid 1 cm pulmonary nodule with spiculated margins is positioned within the right upper lobe. No other suspicious or concerning pulmonary nodules are present. Moderate centrilobular emphysema is present. Pleural scar is noted within the left lung apex. No pleural effusion or pleural thickening is noted. Heart size is normal. Mild pulmonary artery prominence is seen likely related to chronic interstitial lung disease. No mediastinal lymphadenopathy is discernible. Moderate burden coronary vascular calcifications indicating high likelihood for significant coronary vascular disease. Lower neck soft tissues are unremarkable in appearance. No axillary lymphadenopathy is present. Remote surgical changes of the epigastric stomach region noted. Large amount of food substance noted within the visualized stomach. IMPRESSION: 1 cm pulmonary nodule right upper lobe with spiculated margins. Primary bronchogenic neoplasm is not excluded. Options for follow-up include 1-[address], PET/CT or biopsy. Large amount of material is demonstrated within the visualized stomach. [place] can have a similar appearance. Coronary vascular disease. Moderate emphysema. Electronically signed by: Boyd Gallegos MD 07/21/2017 8:56 AM GENERAL OPHTHALMOLOGIST
== END ==
LOC: YCFC.O 16:46
PROVIDERS: ATTEND Nurse Practitioner Family
DX: R91.1 Solitary pulmonary nodule (principal); J43.9 Emphysema, unspecified; R94.5 Abnormal results of liver function studies; R74.8 Abnormal levels of other serum enzymes; I99.8 Other disorder of circulatory system

== ENCOUNTER 2017-07-23 20:13 | Inpatient (IN) | payer MEDICARE, MEDICAID ==
--- NOTE | 2017-07-23 22:08 | RAD ---
Examination: XR CHEST 2 VIEWS dated 07/23/2017 9:24 PM MACHINE BENDER History: sob, hypoxia Comparison: 07/11/2017 Technique: Frontal and lateral views of the chest Findings: 9 mm right upper lobe pulmonary nodule. Remainder of lungs are clear. Surgical clips project over the region of the GE junction. No pneumothorax or pleural effusion. The cardiomediastinal silhouette is within normal limits. Impression: No acute findings. 9 mm right upper lobe pulmonary nodule. See prior CT chest report for further details. Electronically signed by: Maximiliano Boss MD 07/23/2017 10:07 PM MACHINE BENDER
[2017-07-23] MEDS ORDERED: SODIUM CHLORIDE 0.9% 1000ML 1,000 ML IVS ONE (22:28)
[2017-07-23] MEDS ORDERED: MAGNESIUM SULFATE PREMIX 4GM 4 GM in PREMIX BAG 1 BAG IVPB ONE (22:28)
[2017-07-23] MEDS ORDERED: IPRATROPIUM/ALBUTEROL 3 ML VIAL NEB ONE (22:29)
[2017-07-23] MEDS ORDERED: MAGNESIUM SULFATE PREMIX 4GM 50 ML IVPB ONE (22:31)
[2017-07-23] MEDS ORDERED: predniSONE 20 MG TAB PO ONE (23:01)
[2017-07-23] MEDS ORDERED: levoFLOXacin 500MG IV 500 MG in PREMIX BAG 1 BAG IVPB ONE (23:01)
--- NOTE | 2017-07-23 23:10 | ED.PDOC ---
History of Present Illness - General Chief Complaint: General Stated Complaint: Migraine, cough, chest presure Time Seen by Provider: 07/23/17 21:18 Exam Limitations: no limitations - History of Present Illness Initial Comments: The patient is a 56-year-old female presenting to the emergency room secondary to shortness of breath for the last 24-48 hours. She was recently diagnosed with a right upper lobe nodule approximately 1 cm in diameter but does look suspicious. She is set to undergo pulmonary evaluation next week. The patient does have significant COPD and has had polycythemia in the past as well as multiple recurrent pneumonias and COPD exacerbations. She completed a course of Bactrim for a UTI for 5 days ago. She is having a mild cough but not really productive sputum. No fevers. No chest pain. No leg swelling. No abdominal swelling. No syncope or near syncope. She does have a mild headache yesterday. She is mildly hypotensive but she is normally mildly hypotensive. She is hypoxic with oxygen saturations on room air ranging from 85-89% at rest. this is a new finding for her. Timing/Duration: 24 hours Severity: mild Improving Factors: nothing Worsening Factors: nothing Associated Symptoms: cough, malaise, shortness of breath Allergies/Adverse Reactions: Allergies Cephalexin [From Keflex] Allergy (Verified 01/04/17 20:33) Home Medications: Ambulatory Orders Albuterol Sulfate Nebs [Proventil Nebs] 2.5 mg INH Q4-6H PRN 03/22/14 Budesonide-Formoterol Fumarate [Symbicort 160-4.5 Mcg/Act] 1 aer IN BID Potassium Chloride Microencaps [Klor-Con M10] 10 meq PO TIDFD 03/22/14 Pregabalin [Lyrica] 75 mg PO TID 03/22/14 Trazodone HCl 100 mg PO BEDTIME 03/22/14 Divalproex Sodium [Depakote] 150 - 275 mg PO BEDTIME 04/14/16 Sucralfate Tab [Carafate Tab] 1 gm PO TID 04/14/16 Azithromycin Tab [Zithromax] 250 mg PO QD #4 tab 10/22/16 Nitrofurantoin Monohydrate Mac [Macrobid] 100 mg PO BID #10 cap 01/04/17 Ciprofloxacin [Cipro] 250 mg PO Q12H #14 tablet 07/11/17 SUMAtriptan SUCCINATE [Imitrex] 50 mg PO ONCE PRN #14 tab 07/11/17 Review of Systems - Review of Systems Constitutional: States: malaise EENTM: States: no symptoms reported Respiratory: States: cough, short of breath Cardiology: States: no symptoms reported Gastrointestinal/Abdominal: States: no symptoms reported Genitourinary: States: no symptoms reported Musculoskeletal: States: no symptoms reported Skin: States: no symptoms reported Neurological: States: no symptoms reported Endocrine: States: no symptoms reported All other Systems: No Change from Baseline Past Medical History (General) - Patient Medical History Hx Seizures: No Hx Stroke: No Hx Asthma: No Hx of COPD: Yes Hx Cardiac Disorders: No Hx Congestive Heart Failure: No Hx Pacemaker: No Hx Hypertension: No Hx Diabetes: No Hx Cancer: No Hx Hepatitis C: No Hx MRSA: No - Vaccination History Hx Tetanus, Diphtheria Vaccination: No Hx Influenza Vaccination: Yes Hx Pneumococcal Vaccination: Yes Immunizations Up to Date: Yes - Social History Hx Tobacco Use: No Hx Chewing Tobacco Use: No Hx Alcohol Use: No Hx Substance Use: No Hx Substance Use Treatment: No Hx Depression: No Hx Physical Abuse: No Hx Emotional Abuse: No Hx Suspected Abuse: No - Female History Patient is a Female of Child Bearing Age (10 -59 yrs old): Yes Patient : No Family Medical History - Family History Father Living Status: Age at (years of age): 65 Cause of : renal cancer Hx Cardiac Disease: Yes Mother Living Status: Hx Family Asthma: No Hx Family Congestive Heart Failure: No Hx Family Hypertension: Yes Hx Family Stroke: No Hx Cardiac Disease: No Hx Family Diabetes: Yes Hx Family Cancer: No Physical Exam - Physical Exam General Appearance: Alert, Anxious, No apparent distress, Other - the patient is very thin Eye Exam: bilateral normal Ears, Nose, Throat: hearing grossly normal, normal ENT inspection, normal pharynx Neck: full range of motion, supple Respiratory: no respiratory distress, no accessory muscle use, rhonchi - scattered and mild, wheezing - mild and more on the right Cardiovascular/Chest: normal peripheral pulses, regular rate, rhythm, no edema Peripheral Pulses: radial,right: 2+, radial,left: 2+, dorsalis pedis,right: 2+, dorsalis pedis,left: 2+ Gastrointestinal/Abdominal: soft, other - ild diffuse epigastric discomfort palpation. Rectal Exam: deferred Back Exam: normal inspection, no CVA tenderness Extremity: normal range of motion, non-tender, normal inspection, no pedal edema , normal capillary refill Neurologic: arts and sciences dean II-XII nml as tested, alert, normal mood/affect, oriented x 3 Skin Exam: normal color Comments: the patient is a 56-year-old female presenting to the emergency room with what appears to be a mild COPD exacerbation on top of her chronic COPD. She is now hypoxic and does require some supplemental oxygen. She is being brought in primarily due to this fact. Given her allergies she is being dosed with IV Levaquin. She has been given some oral steroids and breathing treatments. Chest x-ray does not show any definitive pneumonia only chronic changes of COPD. Her headache is likely due to the hypoxia and borderline low blood pressures. She has been given a small fluid bolus and she is being given some IV magnesium for her hypomagnesemia which will need to be rechecked. She is not febrile. She will still need to undergo evaluation for the pulmonary nodule in the very near future. Admit for her current COPD exacerbation. 07/23/17 22:28 Magnesium Sulfate Premix 4Gm 4 gm Premix Bag 1 bag IVPB ONCE Sodium Chloride 0.9% 1000ML [Ns 1000 ml] 1,000 ml IVS ONCE 07/23/17 23:01 levoFLOXacin 500MG IV [Levaquin 500MG IV] 500 mg Premix Bag 1 bag IVPB ONCE Laboratory Results - last 24 hr 07/23/17 07/23/17 07/23/17 21:47 21:47 21:47 WBC 5.3 RBC 4.50 Hgb 15.1 Hct 44.8 MCV 99.6 H MCH 33.5 H MCHC 33.6 RDW 12.7 Plt Count 204 MPV 8.8 Absolute Neuts (auto) 2.60 Absolute Lymphs (auto) 1.90 Absolute Monos (auto) 0.60 Absolute Eos (auto) 0.10 Absolute Basos (auto) 0.00 Neutrophils % 49.1 Lymphocytes % 35.6 Monocytes % 12.2 H Eosinophils % 2.5 Basophils % 0.6 D-Dimer, Quantitative < 230 Sodium 139 Potassium 3.8 Chloride 105 Carbon Dioxide 28 Anion Gap 9.8 L BUN 17 Creatinine < 0.40 L BUN/Creatinine Ratio 42.0 H Random Glucose 99 Serum Osmolality 279.1 Calcium 8.8 Magnesium 1.3 L Total Bilirubin 0.3 AST 80 H ALT 53 Alkaline Phosphatase 118 Creatine Kinase 62 CK-MB (CK-2) 3.1 CK-MB (CK-2) % Not Reportable Troponin I < 0.02 B-Natriuretic Peptide 14.4 Serum Total Protein 5.9 L Albumin 3.1 L Globulin 2.8 Albumin/Globulin Ratio 1.1 Urine Color Urine Appearance Urine pH Ur Specific [place] Urine Protein Urine Glucose (UA) Urine Ketones Urine Blood Urine Nitrite Urine Bilirubin Urine Urobilinogen Ur Leukocyte Esterase Urine RBC Urine WBC Ur Epithelial Cells Urine Bacteria 07/23/17 22:07 WBC RBC Hgb Hct MCV MCH MCHC RDW Plt Count MPV Absolute Neuts (auto) Absolute Lymphs (auto) Absolute Monos (auto) Absolute Eos (auto) Absolute Basos (auto) Neutrophils % Lymphocytes % Monocytes % Eosinophils % Basophils % D-Dimer, Quantitative Sodium Potassium Chloride Carbon Dioxide Anion Gap BUN Creatinine BUN/Creatinine Ratio Random Glucose Serum Osmolality Calcium Magnesium Total Bilirubin AST ALT Alkaline Phosphatase Creatine Kinase CK-MB (CK-2) CK-MB (CK-2) % Troponin I B-Natriuretic Peptide Serum Total Protein Albumin Globulin Albumin/Globulin Ratio Urine Color Yellow Urine Appearance Sl cloudy Urine pH 5.5 Ur Specific [place] 1.025 Urine Protein Negative Urine Glucose (UA) Negative Urine Ketones Trace Urine Blood Moderate H Urine Nitrite Negative Urine Bilirubin Negative Urine Urobilinogen 0.2 Ur Leukocyte Esterase Trace H Urine RBC 0-1 Urine WBC 5-10 H Ur Epithelial Cells 10-20 Urine Bacteria 3+ H EKG shows mild sinus bradycardia at a rate of 56 bpm. She does have a mild left axis deviation and a pulmonary disease pattern. Otherwise no acute changes. Chest x-ray does show COPD but no definitive new infiltrates and no evidence of any CHF. No pneumothorax. Departure - Departure Clinical Impression: COPD with acute exacerbation, Hypomagnesemia Disposition: Admit Patient Home Medications: Ambulatory Orders Albuterol Sulfate Nebs [Proventil Nebs] 2.5 mg INH Q4-6H PRN 03/22/14 Budesonide-Formoterol Fumarate [Symbicort 160-4.5 Mcg/Act] 1 aer IN BID Potassium Chloride Microencaps [Klor-Con M10] 10 meq PO TIDFD 03/22/14 Pregabalin [Lyrica] 75 mg PO TID 03/22/14 Trazodone HCl 100 mg PO BEDTIME 03/22/14 Divalproex Sodium [Depakote] 150 - 275 mg PO BEDTIME 04/14/16 Sucralfate Tab [Carafate Tab] 1 gm PO TID 04/14/16 Azithromycin Tab [Zithromax] 250 mg PO QD #4 tab 10/22/16 Nitrofurantoin Monohydrate Mac [Macrobid] 100 mg PO BID #10 cap 01/04/17 Ciprofloxacin [Cipro] 250 mg PO Q12H #14 tablet 07/11/17 SUMAtriptan SUCCINATE [Imitrex] 50 mg PO ONCE PRN #14 tab 07/11/17 Decision To Admit - Decistion To Admit Decision to Admit Reason: Medical Nature Decision to Admit Date: 07/23/17 Decision to Admit Time: 23:14
--- NOTE | 2017-07-23 23:28 | HP ---
SUPERVISING PHYSICIAN: Maximiliano Negrete MD CHIEF COMPLAINT: Chest tightness with cough and shortness of breath. HISTORY OF PRESENT ILLNESS: This is a 56-year-old female patient who has had complaints of weakness, coughing, shortness of breath for two weeks and on the day of admission, she also felt some tightness in her chest. They brought her to the Emergency Room. In the Emergency Room, she had a chest x-ray that showed no acute cardiopulmonary process, but did show a 1 cm pulmonary nodule. She had had a CAT scan previously on 07/18/17 that is being investigated by Dr. Sauceda, roasterman. She has an appointment with him on 07/31/17. She does have chronic obstructive pulmonary disease and has been an 84 plus pack year smoker and recently quit smoking about 10 days ago. She also recently had a urinary tract infection that was treated with Bactrim at [facility] and she finished her round of antibiotics two days ago. In the Emergency Room, her flu swab was negative and her electrolytes were within normal limits with the exception of her magnesium was 1.3. Her cardiac enzymes were negative. She did have an AST of 80. White count was normal at 5.3. Hemoglobin was 15.1, hematocrit 44.8, platelet count 204. She had a mild urinary tract infection per UA with moderate urine blood, trace of leukocyte esterase, 5 to 10 urine WBCs and 3+ urine bacteria. Urine culture was submitted and the patient was admitted to the hospital. On admission to the hospital, she received Levaquin as well as breathing treatments and was put on oxygen. Her O2 saturations at rest on admission to the Emergency Room showed 88 %. After placing oxygen on the patient, her oxygen saturations came to the low 90s. PAST MEDICAL HISTORY: 1. Chronic obstructive pulmonary disease. 2. "Spot on my lung." 3. Gastroesophageal reflux disease. 4. Bipolar disorder. PAST SURGICAL HISTORY: 1. Gastrectomy with appendectomy and cholecystectomy. 2. Hysterectomy. 3. times one. ALLERGIES: KEFLEX. OUTPATIENT MEDICATIONS: Per the EMR and awaiting verification. SOCIAL HISTORY: She lives in [place] with her sister and granddaughter. She is and disabled. She quit smoking approximately 10 days ago, but prior to that, she has a 2 pack per day history since she was 14, which is an 84 plus pack year smoking history. She denies any ETOH or illicit drug use. REVIEW OF SYSTEMS: GENERAL: Positive for fatigue. Negative for fever or weight changes. HEENT: Positive for sinus symptoms, nasal discharge. Negative for ear pain, vision changes or sore throat. RESPIRATORY: Positive for productive cough with a small amount of green sputum. Positive for shortness of breath. Negative for wheezing. CARDIAC: Positive for some chest tightness. Negative for substernal chest pain , palpitations or tachycardia. GASTROINTESTINAL: Positive for nausea. Negative for vomiting, diarrhea, constipation. GENITOURINARY: Positive for recent urinary tract infection. Negative for hematuria, dysuria or nocturia. NEUROLOGIC: Positive for dizziness and headache. Negative for seizures. SKIN: Negative for lesions or rashes. PHYSICAL EXAMINATION: VITAL SIGNS: Afebrile. Heart rate 66. Blood pressure 98/58. Respiratory rate 16. O2 saturation has been as low as 88% at rest on room air and is now up to 93% to 94% on 2 liters nasal cannula. GENERAL: This is a 56-year-old female who is lying in her hospital bed. She is in no acute distress. HEENT: Normocephalic, atraumatic. She has a clear nasal discharge. Oropharynx is clear. Poor dentition. NECK: Supple without mass. No jugular venous distention. RESPIRATORY: Diminished breath sounds throughout. No audible wheezing or crackles. She is slightly tachypneic at times with her respiratory rate going up to 22 breaths per minute. CARDIOVASCULAR: Regular rate and rhythm. ABDOMEN: Soft, nondistended, nontender. Bowel sounds are positive. EXTREMITIES: No cyanosis, clubbing or edema. NEUROLOGIC: Awake, alert and oriented times three. LABORATORY: Labs and films are as per the history of present illness. ASSESSMENT: 1. Chronic obstructive pulmonary disease with acute exacerbation in a chronic smoker. 2. Hypoxemia. 3. Recurrent urinary tract infection, treated with Bactrim recently and with a urinary tract infection on present urinalysis results with culture pending. 4. Hypomagnesemia. 5. 1 cm pulmonary nodule per x-ray and CT done on 07/18/17. She has an appointment with Dr. Sauceda, roasterman, on 07/31/17 for evaluation of the pulmonary nodule. 6. Gastroesophageal reflux disease. 7. Bipolar disorder. PLAN: We will admit the patient to the hospital. She is on oxygen and I will initiate orders to get her home O2. She has a nebulizer at home and she will need to continue with those. She has a pulmonary appointment with Dr. Sauceda and hopefully she can be started on some medications for her chronic obstructive pulmonary disease at that time. We have done extensive teaching for smoking cessation. She is on Xopenex nebulizers which will continue as well as DuoNeb. We will continue her Levaquin. I have also given her magnesium and we will recheck that later today. She has received some fluids and we will continue those until later in the morning and then we can discontinue those if she takes p.o. without any problem. We will continue her home medications. We will continue her on prednisone taper. She has proton pump inhibitor for ulcer prophylaxis as well as Lovenox for DVT prophylaxis. I have ordered an ambulation study and I will get a sputum and followup cardiac enzymes. Dr. Negrete is the collaborating physician and available for consultation. #[id number] [facility]
[2017-07-23] MEDS ORDERED: KCL 20 MEQ/NS 1,000 ML IVS PRN (23:31)
[2017-07-23] MEDS ORDERED: LEVALBUTEROL NEBS 1.25 MG/3 ML VIAL INH PRN (23:31)
[2017-07-23] MEDS ORDERED: SODIUM CHLORIDE 0.9% (FLUSH) 10 ML SYG IV PRN (23:31)
[2017-07-23] MEDS ORDERED: MAGNESIUM HYDROXIDE 30 ML UD PO PRN (23:31)
[2017-07-23] MEDS ORDERED: ACETAMINOPHEN 325 MG TAB PO PRN (23:31)
[2017-07-23] MEDS ORDERED: levoFLOXacin 500MG IV 100 ML IVPB ONE (23:36)
[2017-07-23] MEDS ORDERED: IV SET AND CAP CHANGE INJ INJ SCH (23:45)
[2017-07-24] MEDS: HYDROcodone 7.5MG/APAP 325MG 1 EA TAB PO PRN ×2 (01:07→18:01)
[2017-07-24] MEDS: IPRATROPIUM/ALBUTEROL 3 ML VIAL INH SCH ×3 (01:31→11:12)
[2017-07-24] MEDS: OMEPRAZOLE CAP 20 MG CAP PO SCH (06:15)
[2017-07-24] MEDS ORDERED: predniSONE 10 MG TAB PO SCH (09:00)
[2017-07-24] MEDS: SUCRALFATE 1 GM TAB PO SCH ×3 (09:00→20:47)
[2017-07-24] MEDS: PREGABALIN 75 MG CAP PO SCH ×3 (09:20→20:48)
[2017-07-24] MEDS ORDERED: MAGNESIUM SULFATE PREMIX 2GM 2 GM in PREMIX BAG 1 BAG IVPB ONE (10:09)
[2017-07-24] MEDS ORDERED: predniSONE 10 MG TAB PO ONE (10:29)
[2017-07-24] MEDS ORDERED: MAGNESIUM SULFATE PREMIX 2GM 50 ML IVPB ONE (11:24)
[2017-07-24] MEDS: ENOXAPARIN SODIUM 40 MG/0.4 ML SYG SUBCU SCH (11:29)
--- NOTE | 2017-07-24 13:05 | PN ---
SUPERVISING PHYSICIAN: Maximiliano Negrete MD DATE: 07/24/17 SUBJECTIVE: The patient is sitting up in bed. She complains of headache due to her breathing treatments. She denies shortness of breath, nausea, vomiting, diarrhea or chest pain. OBJECTIVE: VITAL SIGNS: Afebrile. Heart rate 66. Blood pressure 98/58. Respiratory rate 16. O2 saturation 96% on 1 liter nasal cannula. LUNGS: Diminished breath sounds throughout. No wheezing or crackles noted. CARDIAC: Regular rate and rhythm. GASTROINTESTINAL: Abdomen is soft, nondistended, nontender. Bowel sounds are positive. EXTREMITIES: No cyanosis, clubbing or edema. LABORATORY: WBC 5.3, hemoglobin 14.3, hematocrit 41.8. Sodium 141, potassium 3.9, chloride 109, carbon dioxide 25, BUN 14, creatinine less than 0.4. Calcium 8.1. Magnesium has come up to 1.6. Second set of cardiac enzymes are negative. All other labs and films have been reviewed via the EMR. ASSESSMENT: 1. Chronic obstructive pulmonary disease with acute exacerbation in a chronic smoker. 2. Hypoxemia. 3. Recurrent urinary tract infection, treated with Bactrim recently and with a urinary tract infection on present urinalysis results with culture pending. 4. Hypomagnesemia. 5. 1 cm pulmonary nodule per x-ray and CT done on 07/18/17. She has an appointment with Dr. Sauceda, acetylene torch solderer, on 07/31/17 for evaluation of the pulmonary nodule. 6. Gastroesophageal reflux disease. 7. Bipolar disorder. PLAN: We will continue present supportive care. I have discontinued her DuoNeb and started her on scheduled Xopenex treatments. She will have an ambulation study this afternoon and we will continue to work on getting her oxygen for home. She is presently on prednisone 40 mg daily and she will need to go home on a prednisone taper with the addition of her Levaquin. We are still awaiting her urine culture. I have ordered routine labs and chest x-ray for in the morning. Continue present supportive care and follow as needed. Dr. Negrete is the collaborating physician and available for consultation. #[id number] [facility]
[2017-07-24] MEDS: LEVALBUTEROL NEBS 1.25 MG/3 ML VIAL NEB SCH ×3 (13:11→20:34)
[2017-07-24] MEDS ORDERED: FLUTICASONE/SALMETEROL 250/50 14 PUFF/17 GM INH INH SCH (13:30)
[2017-07-24] MEDS: CETIRIZINE HCL 10 MG TAB PO SCH (14:49)
[2017-07-24] MEDS: DULoxetine HCL 30 MG CAP PO SCH (14:55)
[2017-07-24] MEDS: POTASSIUM CHLORIDE 10 MEQ TAB PO SCH (16:23)
[2017-07-24] MEDS: METOCLOPRAMIDE HCL 5 MG TAB PO SCH (16:23)
[2017-07-24] MEDS ORDERED: levoFLOXacin 500MG IV 100 ML IVPB ONE (19:19)
[2017-07-24] MEDS: FLUTICASONE/SALMETEROL 250/50 14 PUFF/17 GM INH INH SCH (20:34)
[2017-07-24] MEDS: SODIUM CHLORIDE 0.9% (FLUSH) 10 ML SYG IV SCH (20:49)
[2017-07-24] MEDS ORDERED: traZODone HCL 100 MG TAB PO SCH (21:00)
[2017-07-24] MEDS ORDERED: DIVALPROEX SODIUM 1500 MG PO SCH (21:00)
[2017-07-24] MEDS ORDERED: SUMAtriptan SUCCINATE 50 MG TAB PO PRN (22:07)
[2017-07-24] MEDS ORDERED: DIVALPROEX SODIUM ER 250 MG TAB PO ONE ×2 (22:14→22:30)
[2017-07-24] MEDS ORDERED: levoFLOXacin 500MG IV 500 MG in PREMIX BAG 1 BAG IVPB SCH (23:00)
[2017-07-25] MEDS: METOCLOPRAMIDE HCL 5 MG TAB PO SCH ×2 (06:43→11:14)
[2017-07-25] MEDS: OMEPRAZOLE CAP 20 MG CAP PO SCH (06:43)
--- NOTE | 2017-07-25 07:29 | RAD ---
EXAM DESCRIPTION: Chest,2 Views CLINICAL HISTORY: copd COMPARISON: July 23, 2017 FINDINGS: Two-view chest x-ray shows enlargement of the cardiac silhouette without pulmonary vascular congestion. The lungs are mildly hyperinflated. Increased interstitial thickening in the right hilar to probably right middle lobe is seen increased from previous exam. There is a 2 mm pulmonary nodule in the right upper lobe. See recent CT scan of the chest for further description. Costophrenic angles are sharp. Mild disc degenerative changes of the spine are seen. IMPRESSION: Interval increased interstitial markings in the probably right middle lobe could represent atelectasis versus developing infiltrate. Consider atypical pneumonia or viral pneumonitis. Electronically signed by: Michael Hunt MD 07/25/2017 7:28 AM [employer]
[2017-07-25] MEDS: POTASSIUM CHLORIDE 10 MEQ TAB PO SCH ×2 (07:45→11:30)
[2017-07-25] MEDS: LEVALBUTEROL NEBS 1.25 MG/3 ML VIAL NEB SCH ×2 (08:24→12:30)
[2017-07-25] MEDS: FLUTICASONE/SALMETEROL 250/50 14 PUFF/17 GM INH INH SCH (08:24)
[2017-07-25] MEDS: PREGABALIN 75 MG CAP PO SCH (08:49)
[2017-07-25] MEDS: SODIUM CHLORIDE 0.9% (FLUSH) 10 ML SYG IV SCH (08:49)
[2017-07-25] MEDS: ENOXAPARIN SODIUM 40 MG/0.4 ML SYG SUBCU SCH (08:49)
[2017-07-25] MEDS: CETIRIZINE HCL 10 MG TAB PO SCH (08:50)
[2017-07-25] MEDS: DULoxetine HCL 30 MG CAP PO SCH (08:50)
[2017-07-25] MEDS: SUCRALFATE 1 GM TAB PO SCH (08:51)
[2017-07-25] MEDS ORDERED: ESTRADIOL TAB 1 MG PO SCH (09:00)
[2017-07-25] MEDS ORDERED: FLUoxetine HCL 10 MG CAP PO SCH (09:00)
[2017-07-25] MEDS ORDERED: SUMAtriptan SUCCINATE 50 MG TAB PO PRN (09:00)
[2017-07-25] MEDS ORDERED: MEGESTROL ACETATE 40 MG TAB PO SCH (09:00)
[2017-07-25 09:35] VITALS: O2SAT 98
[2017-07-25 10:00] VITALS: BP 115/69; TEMP 97.2
[2017-07-25] MEDS ORDERED: DIVALPROEX SODIUM ER 250 MG TAB PO SCH (21:00)
[2017-07-25] MEDS ORDERED: DIVALPROEX SODIUM ER 250 MG TAB PO ONE (21:36)
--- NOTE | 2017-08-02 21:14 | DS ---
SUPERVISING PHYSICIAN: Maximiliano Negrete M.D. DISCHARGE DIAGNOSIS: 1. Chronic obstructive pulmonary disease with an acute exacerbation in a chronic smoker. 2. Hypoxemia. 3. Recent urinary tract infection treated with Bactrim recently and with a urinary tract infection on present urinalysis with results showing no growth after 48 hours. 4. Hypomagnesemia that has resolved. 5. 1 cm pulmonary nodule per x-ray and CT done on 07/18/17. She has an appointment with Dr. Sauceda, supervisor carding, on 07/31/17 for evaluation of the pulmonary nodule. 6. Gastroesophageal reflux disease. 7. Bipolar disorder. HISTORY OF PRESENT ILLNESS: This is a 56 year-old female patient who had complaints of weakness, coughing and shortness of breath for 2 weeks prior to the day of admission. She also felt some tightness in her chest. She came to the Emergency Room. Her chest x-ray showed no acute cardiopulmonary process but did show a 1 cm pulmonary nodule. She had a CAT scan previously done on that is being investigated by Dr. Sauceda, supervisor carding, and she has an appointment with him on 07/31/17. She does have COPD and has been an 84 plus pack year smoker, and recently quit smoking 10 days prior to her admission. She also had a urinary tract infection that was treated with Bactrim at [facility] and she finished her round of antibiotics 2 days prior to admission. In the E. R., her flu swab was negative. Electrolytes were within normal limits with the exception of her magnesium which was 1.3. Her cardiac enzymes were negative. She did have an AST of 80. Her white count was normal at 5.3, hemoglobin was 15.1, hematocrit 44.8 with platelet count 204. She had a mild urinary tract infection per UA with moderate urine blood, trace of leukocyte esterase, 5 to 10 urine WBCs and 3+ urine bacteria. Urine culture was submitted and the patient was admitted to the hospital. HOSPITAL COURSE: On admission to the hospital, she received Levaquin as well as breathing treatments and put on oxygen. Her O2 saturations at rest in the Emergency Room showed 88% and after placing her on oxygen her saturations came up to the low 90s. Over the next 2 days, her vital signs improved and clinically she responded to the Levaquin as well as the breathing treatments and her steroid administration. Her magnesium was corrected. She will be prescribed oxygen for at home as she will need it for nighttime. She can be discharged home today in stable condition. DISCHARGE PLAN: The patient will be discharged home in stable condition. She will be continued on Xopenex breathing treatments. She will have a prednisone taper as well as Levaquin antibiotics. She is to see Dr. Sauceda as previously scheduled and I have given her a CD of her CAT scan to take to Dr. Sauceda. Her urine culture showed no growth and she will followup with Laurel Richards on 07/29 at 9:30 AM. She is to return to the hospital for any further problems or complications. DISCHARGE MEDICATIONS: 1. Lyrica. 2. Potassium chloride. 3. Sucralfate. 4. Advair. 5. Reglan. 6. Estradiol. 7. Cetirizine. 8. Megace. 9. Prozac. 10. Pantoprazole. 11. Cymbalta. 12. Imitrex. 13. Depakote. 14. Levaquin. 15. Prednisone steroid taper. Dr. Negrete is the collaborating physician available for consultation. #[id number] [facility]ES HOSPITALDesiree
== END 2017-07-25 12:59 | disposition home or self-care (01) | DRG 191 ==
LOC: ER 20:13 → MS 23:26 → OBSVTOIN 23:26
PROVIDERS: ADMIT Nurse Practitioner Acute Care; ATTEND Nurse Practitioner Acute Care
DX: J44.1 Chronic obstructive pulmonary disease with (acute) exacerbation (principal); N39.0 Urinary tract infection, site not specified; R09.02 Hypoxemia; E83.42 Hypomagnesemia; K21.9 Gastro-esophageal reflux disease without esophagitis; F31.9 Bipolar disorder, unspecified; R91.1 Solitary pulmonary nodule; R51 Headache; F17.210 Nicotine dependence, cigarettes, uncomplicated; Z79.899 Other long term (current) drug therapy; Z88.1 Allergy status to other antibiotic agents

== ENCOUNTER → 2017-07-29 | Outpatient (CLI) | payer MEDICARE, MEDICAID ==
--- NOTE | 2017-07-30 10:22 | CT ---
EXAM DESCRIPTION: Abdomen/Pelvis w/wo Contrast: Computed Tomography. CLINICAL HISTORY: FOREIGN BODY OF ALIMENTARY TRACT COMPARISON: CT chest without contrast 07/18/2017. TECHNIQUE: Spiral-axial scans at 5.0 mm intervals through the abdomen and pelvis before and after standard dose nonionic IV contrast. No oral contrast. Coronal and sagittal 5.0 mm reconstructions. No adverse reactions. Total Exam DLP 500.45 mGy - cm. This exam was performed according to our departmental CT dose-optimization program which includes automated exposure control, adjustment of the mA and/or kV according to patient size and/or use of iterative reconstruction technique; to reduce radiation dose to as low as reasonably achievable (ALARA). FINDINGS: Lung bases and pleura: Negative. Stomach: Surgical clips at the gastroesophageal junction. Also surgical clips on the medial aspect of the stomach with what appears to be distal partial gastrectomy. Large object in the stomach with mixed density and multiple air pockets no calcifications. This mass measures 6.6 x 7.8 x 8.5 cm, most likely a bezoar. Patient has had a gastric bypass and the bezoar material extends into a loop of bowel which is distended with fluid and gas and appears to be a blind loop of duodenum. The alvarez are thickened and enhancing. This is on the inferior medial aspect. A second gastric outlet is on the inferior anterior aspect, appears to connect to the jejunum, and the jejunum is also distended with fluid. Also thickened and enhancing. Liver, spleen and adrenal glands: Marked enlargement of the liver which extends into the mid upper pelvis with enhancement and the long axis of the right lobe measures 22 cm. Intrahepatic biliary dilatation. 2 cm cyst on the anterior spleen or abutting the anterior spleen lateral to the upper stomach. Adrenal glands are not enlarged.. Pancreas, Gallbladder, Ducts: Surgical clips in the gallbladder fossa. Common bile duct distended. Pancreas is decreased in size and displaced medially and superiorly by bowel. Kidneys and Ureters: Right kidney unremarkable except for small cortical cysts. Large 3.8 cm cyst in the mid and lower pole of the left kidney with other cortical cysts. No hydronephrosis. Mesentery: Jose effaced by distended bowel. No free fluid or free air. Aorta: Moderate atherosclerotic calcification extending into the common iliac arteries. Small Bowel: Minimally distended by fluid with no air-fluid levels. Also displaced inferiorly into the pelvis by large liver and distended proximal bowel. Scattered deposits of bezoar like material more proximally than distally.. Terminal Ileum/Cecum: Medial to the enlarged liver. Difficult to visualize. No appendix seen. Colon: Minimally distended by fecal material involving the ascending colon transverse colon and descending colon. Less fecal matter in the sigmoid colon which is moderately redundant. Pelvic Organs: Urinary bladder with no radiodense stones not distended. Air in the vaginal cuff. Uterus and ovaries not seen. No fluid in the cul-de-sac. Spine and Bony Pelvis: Overall decreased bone density. Dextroscoliosis of the included lumbar spine. 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 Well-circumscribed and dense alvarez around this cyst. Abdominal Wall/Back Soft Tissues: Unremarkable. IMPRESSION: 1. Patient has had partial gastrectomy and a duodenal and jejunal bypass. The duodenum bypass is distally with proximal blind loop at the second segment abutting the gallbladder fossa.. 2. 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 Small bezoar components in this loop. Jejunal by pass is minimally distended but not obstructed. Small bezoar components more proximally than distally in the small bowel which is not obstructed. Surgical consult is recommended. 3. Significant hepatomegaly. Intrahepatic biliary dilation extending into the common bile duct and the pancreatic duct. Pancreas is displaced medially and superiorly. 4. Obstipation of the colon by fecal matter more proximally and mid colon than distally. Redundant sigmoid with no calcifications. 5. No peritoneal or retroperitoneal mass. No ascites or free air or free fluid. 6. Large cyst in the left kidney but no hydronephrosis. Electronically signed by: Andrez العراقي MD 07/30/2017 10:21 AM [employer]
== END ==
LOC: LAB.O 15:07
PROVIDERS: ATTEND Nurse Practitioner Family
DX: T18.9XXA Foreign body of alimentary tract, part unspecified, initial encounter (principal); E83.42 Hypomagnesemia

== ENCOUNTER → 2017-08-21 | Outpatient (CLI) | payer MEDICARE, MEDICAID ==
--- NOTE | 2017-08-21 14:08 | RAD ---
EXAM DESCRIPTION: Chest,2 Views CLINICAL HISTORY: PNEUMONIA COMPARISON: Previous study July 25, 2017 TECHNIQUE: PA/lateral FINDINGS: There is no acute appearing cardiac or pulmonary abnormality. Heart size is normal with normal pulmonary vascularity. No pleural effusion or pneumothorax. Lungs are hyperexpanded with no consolidating infiltrate. Question small hiatal hernia behind the heart. Surgical clips are seen in the left upper abdomen. Lateral view shows osteopenic sternum and T-spine. IMPRESSION: No acute process is identified in the chest. Electronically signed by: Morgan Gutierrez MD 08/21/2017 2:07 PM WEAVING SUPERVISOR
== END ==
LOC: YCFC.O 11:19
PROVIDERS: ATTEND Nurse Practitioner Family
DX: J18.9 Pneumonia, unspecified organism (principal)

== ENCOUNTER 2017-11-20 10:07 | Emergency (ER) | payer MEDICARE, MEDICAID ==
[2017-11-20 10:19] VITALS: TEMP 97.8
[2017-11-20] MEDS ORDERED: MORPHINE SULFATE INJ 10 MG/ML VIAL IV ONE (10:51)
--- NOTE | 2017-11-20 10:54 | ED.PDOC ---
History of Present Illness - General Chief Complaint: Lower Extremity Injury Stated Complaint: L hip discomfort Time Seen by Provider: 11/20/17 10:26 Source: patient Exam Limitations: no limitations Additional Information: TRIPPED AND FELL AGAINST DRYER. C/O L HIP PAIN. NO LOC - History of Present Illness Pain - Lower Extremity: moderate: Left Thigh/Hip Method of Injury: fell Improving Factors: nothing Worsening Factors: movement Allergies/Adverse Reactions: Allergies Cephalexin [From Keflex] Allergy (Verified 11/20/17 10:19) Rash Home Medications: Ambulatory Orders Potassium Chloride Microencaps [Klor-Con M10] 10 meq PO TIDFD 03/22/14 Pregabalin [Lyrica] 150 mg PO BID 03/22/14 Sucralfate Tab [Carafate Tab] 1 gm PO QID 04/14/16 Estradiol [Estrace] 1 mg PO DAILY 07/24/17 FLUoxetine HCL [Prozac] 10 mg PO DAILY 07/24/17 Fluticasone/Salmeterol 250/50 [Advair 250/50 Diskus] 1 puff INH BID 07/24/17 Metoclopramide Tab [Reglan Tab] 5 mg PO TIDFD 07/24/17 Pantoprazole Sodium 40 mg PO DAILY 07/24/17 SUMAtriptan SUCCINATE [Imitrex] 25 mg PO ONCE PRN 07/24/17 Divalproex Sodium [Depakote ER] 1,500 mg PO BEDTIME 07/25/17 Review of Systems - Review of Systems Constitutional: Denies: chills, fever EENTM: States: no symptoms reported Respiratory: States: no symptoms reported Cardiology: States: no symptoms reported Gastrointestinal/Abdominal: Denies: nausea, vomiting Musculoskeletal: States: no symptoms reported Skin: States: no symptoms reported Neurological: Denies: numbness, tingling, weakness Endocrine: States: no symptoms reported Hematologic/Lymphatic: States: no symptoms reported Past Medical History (General) - Patient Medical History Hx Seizures: No Hx Stroke: No Hx Asthma: Yes Hx of COPD: Yes Hx Cardiac Disorders: No Hx Congestive Heart Failure: No Hx Pacemaker: No Hx Hypertension: No Hx Diabetes: No Hx Cancer: No Hx Hepatitis C: No Hx MRSA: No Surgical History: appendectomy, cholecystectomy, tonsillectomy - Vaccination History Hx Tetanus, Diphtheria Vaccination: No Hx Influenza Vaccination: Yes - 2017 Hx Pneumococcal Vaccination: Yes - 2017 - Social History Hx Tobacco Use: Yes Hx Chewing Tobacco Use: No Hx Alcohol Use: No Hx Substance Use: No Hx Substance Use Treatment: No Hx Depression: No Hx Physical Abuse: No Hx Emotional Abuse: No Hx Suspected Abuse: No - Female History Patient : No Family Medical History - Family History Father Living Status: Age at (years of age): 65 Cause of : renal cancer Hx Cardiac Disease: Yes Mother Living Status: Hx Family Asthma: No Hx Family Congestive Heart Failure: No Hx Family Hypertension: Yes Hx Family Stroke: No Hx Cardiac Disease: No Hx Family Diabetes: Yes Hx Family Cancer: No Physical Exam - Physical Exam General Appearance: No apparent distress, Other - THIN AND FRAIL APPEARING Eyes, Ears, Nose, Throat: PERRL/EOMI, normal ENT inspection Neck: non-tender, full range of motion, supple Cardiovascular/Respiratory: regular rate, rhythm, no M/R/G, no respiratory distress, other - DIMINISHED BS RAMIRO, NO W/R/R Gastrointestinal/Abdominal: non-tender, no organomegaly Back: normal inspection, no vertebral tenderness Thigh/Hip: other - TTP L HIP LEG SHORTENED AND INT ROTATED. Knee: normal inspection Ankle: normal inspection Foot: normal inspection, other - NVI, GOOD DISTAL PULSES Neuro/Tendon: normal sensation, normal motor functions Mental Status: alert, oriented x 3 Skin: normal color, warm/dry Progress - Progress Progress: 11/20/[address] HUGHES NOT AVAILABLE. WOULD LIKE TO GO TO [facility]. - EKG/XRAY/CT XRAY: hip - L FEMORAL NECK FX. Departure - Departure Clinical Impression: Left displaced femoral neck fracture Hypertension Qualifiers: Hypertension type: essential hypertension Qualified Code(s): I10 - Essential ( primary) hypertension COPD (chronic obstructive pulmonary disease) Qualifiers: COPD type: unspecified COPD Qualified Code(s): J44.9 - Chronic obstructive pulmonary disease, unspecified Time of Disposition: 11:52 Disposition: Discharge to Home or Self Care Condition: Fair Departure Forms: ED Discharge - Pt. Copy, Patient Portal Self Enrollment Instructions: DI for Leg Pain Referrals: Terri Bedolla, FIRE ENGINEER [Primary Care Provider] - 1-2 Weeks Home Medications: Ambulatory Orders Potassium Chloride Microencaps [Klor-Con M10] 10 meq PO TIDFD 03/22/14 Pregabalin [Lyrica] 150 mg PO BID 03/22/14 Sucralfate Tab [Carafate Tab] 1 gm PO QID 04/14/16 Estradiol [Estrace] 1 mg PO DAILY 07/24/17 FLUoxetine HCL [Prozac] 10 mg PO DAILY 07/24/17 Fluticasone/Salmeterol 250/50 [Advair 250/50 Diskus] 1 puff INH BID 07/24/17 Metoclopramide Tab [Reglan Tab] 5 mg PO TIDFD 07/24/17 Pantoprazole Sodium 40 mg PO DAILY 07/24/17 SUMAtriptan SUCCINATE [Imitrex] 25 mg PO ONCE PRN 07/24/17 Divalproex Sodium [Depakote ER] 1,500 mg PO BEDTIME 07/25/17 Transfer to Outside Facility - Transfer Information Accepting Provider:: DR NASH Accepting Facility: [facility] Reason for Transfer: required specialist not available - [id number]
--- NOTE | 2017-11-20 10:58 | RAD ---
EXAM DESCRIPTION: Hip,Left 2 Views CLINICAL HISTORY: 57 years Female, Fall, inward rotation, unable to stand on leg COMPARISON: None. FINDINGS: Single AP view of the left hip was obtained. There is marked medial angulation of the left femur highly suggestive of a left femoral neck fracture. No fracture plane is definitely identified. Postoperative changes are noted in the pelvis. The left hip joint space is well-maintained. IMPRESSION: Marked medially angulation of the left femur highly suspicious for left femoral neck fracture. CT could be performed for confirmation and further evaluation. Electronically signed by: Pradip Barkley MD 11/20/2017 10:56 AM CDT
--- NOTE | 2017-11-20 10:59 | RAD ---
EXAM DESCRIPTION: Pelvis CLINICAL HISTORY: 57 years Female, Fall, L hip discomfort COMPARISON: None. FINDINGS: Single AP view of the pelvis shows marked medial angulation of the left femur, highly suspicious for left femoral neck fracture. No fracture plane is definitely identified. No additional pelvic fracture is seen. Postoperative changes are noted in the pelvis. The hip joint spaces are well-maintained. IMPRESSION: Abnormal appearance of the left hip highly suspicious for left femoral neck fracture. Additional views of the left hip or CT should be considered for further evaluation. Electronically signed by: Pradip Barkley MD 11/20/2017 10:58 AM CDT
[2017-11-20 12:07] VITALS: BP 102/62; O2SAT 91
== END 2017-11-20 12:10 | disposition home or self-care (01) ==
LOC: ER 10:07
DX: S72.002A Fracture of unspecified part of neck of left femur, initial encounter for closed fracture (principal); I10 Essential (primary) hypertension; J44.9 Chronic obstructive pulmonary disease, unspecified; J45.909 Unspecified asthma, uncomplicated; W01.198A Fall on same level from slipping, tripping and stumbling with subsequent striking against other object, initial encounter
CPT/HCPCS: 72170; 73502; 80048; 81001; 85025; 85610; 85730; 93005; J2270

== ENCOUNTER → 2018-04-10 | Outpatient (CLI) | payer MEDICARE, MEDICAID ==
--- NOTE | 2018-04-10 14:34 | RAD ---
EXAM DESCRIPTION: Pelvis CLINICAL HISTORY: 57 years Female, PAIN IN LEFT HIP COMPARISON: November 20, 2017 FINDINGS: Single AP view of the pelvis was obtained. Postoperative changes in the left hip are partially visualized without apparent hardware complication. Suture anchors are noted in the pubic symphysis. The bones appear demineralized. No displaced pelvic fracture is seen. The hip joint spaces are fairly well-maintained. IMPRESSION: Postoperative changes in the left hip without apparent hardware complication or additional abnormality to explain left hip pain. Electronically signed by: Pradip Barkley MD 04/10/2018 2:33 PM CDT
--- NOTE | 2018-04-10 14:37 | RAD ---
EXAM DESCRIPTION: Knee,Left Complete CLINICAL HISTORY: 57 years Female, PAIN IN LEFT KNEE COMPARISON: April 18, 2017 FINDINGS: Four views of the left knee show no acute fracture or malalignment. There is no left knee joint effusion. Mild patellofemoral joint space narrowing. Chondrocalcinosis is noted in the lateral compartment, unchanged from the previous. IMPRESSION: Mild degenerative changes, but no acute left knee abnormality. Electronically signed by: Pradip Barkley MD 04/10/2018 2:35 PM CDT
--- NOTE | 2018-04-10 14:38 | RAD ---
EXAM DESCRIPTION: Knee,Right Complete CLINICAL HISTORY: 57 years Female, KNEE PN COMPARISON: None. FINDINGS: Four views of the right knee show no acute fracture or malalignment. Chondrocalcinosis is noted in the medial and lateral compartments. No joint effusion. Mild patellofemoral joint space narrowing. IMPRESSION: Mild tricompartmental degenerative changes, but no acute right knee abnormality. Electronically signed by: Pradip Barkley MD 04/10/2018 2:36 PM CDT
== END ==
LOC: RAD 08:57
PROVIDERS: ATTEND Orthopaedic Surgery
DX: M25.562 Pain in left knee (principal); M25.561 Pain in right knee; M25.552 Pain in left hip; M25.551 Pain in right hip

== ENCOUNTER → 2018-04-14 | Outpatient (CLI) | payer MEDICARE, MEDICAID ==
--- NOTE | 2018-04-16 20:08 | MAM ---
EXAM DESCRIPTION: 3D Screening BILATERAL : Digital Mammography. CLINICAL HISTORY: 57 years Female SCREENING . No complaints. No personal or family history of breast cancer. Childbirth. Postmenopausal 29 years. Currently on HRT. Prior cyst aspiration and benign biopsy right breast. Lifetime risk of developing breast cancer (Tyrer-Cuzick model)(%): 6.9. COMPARISON: 2-D digital screening bilateral mammography 11/13/2016. TECHNIQUE: Bilateral CC and MLO projection full-field images, Digital tomosynthesis mammographic technique. Bilateral digital 2-D full-field MLO images. CAD not utilized. FINDINGS: The breast parenchymal density pattern is: Heterogeneously dense breast tissue, which may obscure small masses. No skin thickening or nipple retraction. Left Breast axillary lymph nodes. Bilateral solitary microcalcifications. Also coarse calcifications. Smaller groups of microcalcifications are stable. No new focal, stellate mass or density, focal asymmetry , and no suspicious microcalcifications bilaterally. Stable mammograms compared to prior study. Taking into account, differences in mammographic technique. IMPRESSION: Benign exam. BIRAD CATEGORY: 2 BENIGN FINDINGS. RECOMMENDATIONS: FOLLOW UP: Routine digital bilateral screening, one year interval from March 2018. Written communication explaining the IMPRESSION and follow-up, will be mailed to the patient and referring health care provider. According to the [employer], yearly mammograms are recommended starting at age 40 and continuing as long as a woman is in good health. Any breast change noted on a breast self-exam should be reported promptly to the patient's healthcare provider. Breast MRI is recommended for women with an approximately 20-25% or greater lifetime risk of breast cancer, including women with a strong family history of breast or ovarian cancer and women who have been treated for Hodgkin's disease. A negative mammographic report should not delay tissue diagnosis in patients with significant clinical history or physical findings. Extremely dense breast tissue limits the sensitivity of digital mammography. Electronically signed by: Andrez العراقي MD 04/16/2018 8:06 PM CDT
== END ==
LOC: MAMMO 14:30
PROVIDERS: ATTEND Nurse Practitioner Family
DX: Z12.31 Encounter for screening mammogram for malignant neoplasm of breast (principal)

== ENCOUNTER → 2018-05-05 | Outpatient (CLI) | payer MEDICARE, MEDICAID | LOC: YCFC.O 15:28 | PROVIDERS: ATTEND Nurse Practitioner Family | DX: R30.0 Dysuria (principal) ==

== ENCOUNTER 2018-07-09 11:47 | Emergency (ER) | payer MEDICARE, MEDICAID ==
--- NOTE | 2018-07-09 12:05 | ED.PDOC ---
History of Present Illness - General Stated Complaint: L knee pain Time Seen by Provider: 07/09/18 11:54 Source: patient Exam Limitations: no limitations - History of Present Illness Initial Comments: Fell backwards last pm because she felt faint. She doesn't know how knee was injured. She had no other complaints Occurred: yesterday Pain - Lower Extremity: moderate: Left Knee Method of Injury: unknown, fell Improving Factors: immobilization Worsening Factors: movement Allergies/Adverse Reactions: Allergies Cephalexin [From Keflex] Allergy (Verified 11/20/17 10:19) Rash Home Medications: Ambulatory Orders Potassium Chloride Microencaps [Klor-Con M10] 10 meq PO TIDFD 03/22/14 Pregabalin [Lyrica] 150 mg PO BID 03/22/14 Sucralfate Tab [Carafate Tab] 1 gm PO QID 04/14/16 Estradiol [Estrace] 1 mg PO DAILY 07/24/17 FLUoxetine HCL [Prozac] 10 mg PO DAILY 07/24/17 Fluticasone/Salmeterol 250/50 [Advair 250/50 Diskus] 1 puff INH BID 07/24/17 Metoclopramide Tab [Reglan Tab] 5 mg PO TIDFD 07/24/17 Pantoprazole Sodium 40 mg PO DAILY 07/24/17 SUMAtriptan SUCCINATE [Imitrex] 25 mg PO ONCE PRN 07/24/17 Divalproex Sodium [Depakote ER] 1,500 mg PO BEDTIME 07/25/17 Tramadol HCl 50 mg PO Q4HR PRN #15 tab 07/09/18 Review of Systems - Review of Systems Constitutional: Denies: chills, fever, weakness EENTM: States: no symptoms reported Respiratory: Denies: cough, short of breath Cardiology: Denies: chest pain, edema Gastrointestinal/Abdominal: States: diarrhea. Denies: abdominal pain, nausea, vomiting Genitourinary: States: no symptoms reported Musculoskeletal: States: joint pain. Denies: joint swelling Skin: States: no symptoms reported Neurological: States: no symptoms reported Past Medical History (General) - Patient Medical History Hx Seizures: No Hx Stroke: No Hx Asthma: Yes Hx of COPD: Yes Hx Cardiac Disorders: No Hx Congestive Heart Failure: No Hx Pacemaker: No Hx Hypertension: No Hx Diabetes: No Hx Cancer: No Hx Hepatitis C: No Hx MRSA: No - Vaccination History Hx Tetanus, Diphtheria Vaccination: No Hx Influenza Vaccination: Yes - 2017 Hx Pneumococcal Vaccination: Yes - 2017 - Social History Hx Tobacco Use: Yes Hx Chewing Tobacco Use: No Hx Alcohol Use: No Hx Substance Use: No Hx Substance Use Treatment: No Hx Depression: No Hx Physical Abuse: No Hx Emotional Abuse: No Hx Suspected Abuse: No - Female History Patient : No Family Medical History - Family History Father Living Status: Age at (years of age): 65 Cause of : renal cancer Hx Cardiac Disease: Yes Mother Living Status: Hx Family Asthma: No Hx Family Congestive Heart Failure: No Hx Family Hypertension: Yes Hx Family Stroke: No Hx Cardiac Disease: No Hx Family Diabetes: Yes Hx Family Cancer: No Physical Exam - Physical Exam General Appearance: Alert, Comfortable Eyes, Ears, Nose, Throat: PERRL/EOMI Neck: normal inspection Thigh/Hip: normal inspection, non-tender, normal ROM Leg: normal inspection, non-tender, no evidence of injury Knee: normal inspection, limited ROM, other - tender over lateral joint, Negative drawer test, Minimally positive McMurrays on lateral joint Ankle: normal inspection, non-tender Foot: normal inspection, non-tender Mental Status: alert, oriented x 3 Skin: normal color, warm/dry Departure - Departure Clinical Impression: Knee sprain Qualifiers: Encounter type: initial encounter Involved ligament of knee: lateral collateral ligament Laterality: left Qualified Code(s): S83.422A - Sprain of lateral collateral ligament of left knee, initial encounter Disposition: Discharge to Home or Self Care Referrals: Terri Bedolla NP [Primary Care Provider] - 1-2 Weeks Prescriptions: Tramadol HCl 50 mg PO Q4HR PRN #15 tab PRN Reason: Pain -- Moderate Home Medications: Ambulatory Orders Potassium Chloride Microencaps [Klor-Con M10] 10 meq PO TIDFD 03/22/14 Pregabalin [Lyrica] 150 mg PO BID 03/22/14 Sucralfate Tab [Carafate Tab] 1 gm PO QID 04/14/16 Estradiol [Estrace] 1 mg PO DAILY 07/24/17 FLUoxetine HCL [Prozac] 10 mg PO DAILY 07/24/17 Fluticasone/Salmeterol 250/50 [Advair 250/50 Diskus] 1 puff INH BID 07/24/17 Metoclopramide Tab [Reglan Tab] 5 mg PO TIDFD 07/24/17 Pantoprazole Sodium 40 mg PO DAILY 07/24/17 SUMAtriptan SUCCINATE [Imitrex] 25 mg PO ONCE PRN 07/24/17 Divalproex Sodium [Depakote ER] 1,500 mg PO BEDTIME 07/25/17 Tramadol HCl 50 mg PO Q4HR PRN #15 tab 07/09/18
[2018-07-09] MEDS ORDERED: HYOSCYAMINE SULFATE 0.125 MG TAB PO ONE (12:16)
--- NOTE | 2018-07-09 12:39 | RAD ---
EXAM DESCRIPTION: Knee,Left 2 or More Views CLINICAL HISTORY: 57 years Female, pain after fall TECHNIQUE: 3 views of the left knee were performed. COMPARISON: None available. FINDINGS: The visualized bones appear well mineralized. No acute fracture or dislocation. Tricompartmental osteoarthritis with chondrocalcinosis is noted. Small suprapatellar joint effusion. The soft tissues appear grossly unremarkable. IMPRESSION: No acute traumatic abnormality. Osteopenia. Electronically signed by: Sarah Sheehan MD 07/09/2018 12:38 PM [facility]
[2018-07-09 13:10] VITALS: BP 110/66; TEMP 98; O2SAT 94
== END 2018-07-09 13:10 | disposition home or self-care (01) ==
LOC: ER 11:47
DX: S83.422A Sprain of lateral collateral ligament of left knee, initial encounter (principal); J44.9 Chronic obstructive pulmonary disease, unspecified; W18.39XA Other fall on same level, initial encounter; Z87.891 Personal history of nicotine dependence; Z79.899 Other long term (current) drug therapy; Z88.8 Allergy status to other drugs, medicaments and biological substances

== ENCOUNTER → 2018-08-28 | Outpatient (CLI) | payer MEDICARE, MEDICAID | LOC: YCFC.O 09:22 | PROVIDERS: ATTEND Nurse Practitioner Family | DX: R30.0 Dysuria (principal) ==

== ENCOUNTER 2019-01-24 19:35 | Emergency (ER) | payer MEDICARE, MEDICAID ==
--- NOTE | 2019-01-24 20:14 | ED.PDOC ---
History of Present Illness - General Chief Complaint: Trauma Stated Complaint: fell hitting right ribs Time Seen by Provider: 01/24/19 19:45 Source: patient Exam Limitations: no limitations - History of Present Illness Initial Comments: Jumana Samayoa 58 y/o female stated she tripped on a step coming from her patio as she was going inside their house this evening.She stated fell to the ground on the right side of her chest-with dull ache after incident.Denies neck ,head hip pains after incident. Occurred: just prior to arrival, this evening Severity: moderate Injuries/Pain Location: chest Reason for Fall: tripped Loss of Consciousness: no loss of consciousness Improving Factors: nothing Worsening Factors: nothing Associated Symptoms (Fall): other - see hpi Allergies/Adverse Reactions: Allergies Cephalexin [From Keflex] Allergy (Verified 01/24/19 19:55) Rash Home Medications: Ambulatory Orders Pregabalin [Lyrica] 150 mg PO BID 03/22/14 Estradiol [Estrace] 1 mg PO DAILY 07/24/17 FLUoxetine HCL [Prozac] 10 mg PO DAILY 07/24/17 Metoclopramide Tab [Reglan Tab] 5 mg PO TIDFD 07/24/17 Pantoprazole Sodium 40 mg PO DAILY 07/24/17 Divalproex Sodium [Depakote ER] 1,000 mg PO BEDTIME 07/25/17 Cyclobenzaprine HCl [Flexeril] 10 mg PO BEDTIME 01/24/19 DULoxetine HCL [Cymbalta] 30 mg PO DAILY 01/24/19 Famotidine 40 mg PO DAILY 01/24/19 Polyethylene Glycol 3350 [Miralax] 17 gm PO DAILY 01/24/19 Potassium Chloride Microencaps [Klor-Con M10] 10 meq PO TID 01/24/19 Quetiapine Fumarate 25 mg PO BEDTIME 01/24/19 Review of Systems - Review of Systems Musculoskeletal: States: other - right rib pain All other Systems: Reviewed and Negative, No Change from Baseline Past Medical History (General) - Patient Medical History Hx Seizures: No Hx Stroke: No Hx Dementia: No Hx Asthma: Yes Hx of COPD: Yes Hx Cardiac Disorders: No Hx Congestive Heart Failure: No Hx Pacemaker: No Hx Hypertension: No Hx Thyroid Disease: No Hx Diabetes: No Hx Gastroesophageal Reflux: Yes - History of bleeding ulcer Hx Renal Disease: No Hx Cancer: No Hx of HIV: No Hx Hepatitis C: No Hx MRSA: No Surgical History: other - hysterectomy;partial gastrectomy-bleeding ulcer - Vaccination History Hx Tetanus, Diphtheria Vaccination: No Hx Influenza Vaccination: Yes - 2017 Hx Pneumococcal Vaccination: Yes - 2017 - Social History Hx Tobacco Use: Yes Cigarettes Packs Per Day: 2 Hx Chewing Tobacco Use: No Hx Alcohol Use: No Hx Substance Use: No Hx Substance Use Treatment: No Hx Depression: No Hx Physical Abuse: No Hx Emotional Abuse: No Hx Suspected Abuse: No - Female History Patient : No Physical Exam - Physical Exam General Appearance: Alert, Comfortable, No apparent distress Head Injury: no evidence of injury Eye Exam: bilateral normal ENT Exam: hearing grossly normal, no evidence of ENT injury, no dental injury Peripheral Pulses: radial,right: 2+, radial,left: 2+ Cardiovascular/Respiratory: regular rate, rhythm, no M/R/G, normal peripheral pulses, normal breath sounds, no respiratory distress, other - tenderness right lower rib cage Gastrointestinal/Abdominal: non tender, soft Back Exam: normal inspection, no CVA tenderness, no vertebral tenderness Neurologic: no motor/sensory deficits, alert, oriented x 3 Skin Exam: normal color, warm/dry, other - no bruising noted - Angel Coma Score Best Eye Response (Felicity): (4) open spontaneously Best Verbal Response (Angel): (5) oriented Best Motor Response (Felicity): (6) obeys commands Progress - Progress Progress: 01/24/19 20:59 Vital Signs - 8 hr 01/24/19 01/24/19 19:40 20:35 Temperature 98.8 F Pulse Rate [ 88 80 monitor] Respiratory 16 18 Rate Blood Pressure 91/62 95/64 [Left Arm] O2 Sat by Pulse 90 L 90 L Oximetry 01/24/19 21:00 Discuss X-ray result with patient with findings of right lung nodule and stated that she had been followed up by ceramic tiler Dr. Sauceda in [place] last and biopsy was made no malignancy noted also stating biopsy specimen from lungs sent to [facility] for further evaluation mention no malignant cells.Has follow with Dr.. Sauceda again this year but patient need to schedule - EKG/XRAY/CT XRAY: chest - right upper lobe nodule CT Ordered: No Departure - Departure Clinical Impression: Lung nodule Fall Qualifiers: Encounter type: initial encounter Qualified Code(s): W19.XXXA - Unspecified fall, initial encounter Rib contusion Qualifiers: Encounter type: initial encounter Laterality: right Qualified Code(s): S20.211A - Contusion of right front wall of thorax, initial encounter Time of Disposition: 21:06 Disposition: Discharge to Home or Self Care Condition: Fair Departure Forms: ED Discharge - Pt. Copy, Patient Portal Self Enrollment Instructions: Bruised Rib (DC), Bruised Rib, Quitting Smoking for Older Adults Referrals: Terri Bedolla NP [Primary Care Provider] - 1-2 Weeks Home Medications: Ambulatory Orders Pregabalin [Lyrica] 150 mg PO BID 03/22/14 Estradiol [Estrace] 1 mg PO DAILY 07/24/17 FLUoxetine HCL [Prozac] 10 mg PO DAILY 07/24/17 Metoclopramide Tab [Reglan Tab] 5 mg PO TIDFD 07/24/17 Pantoprazole Sodium 40 mg PO DAILY 07/24/17 Divalproex Sodium [Depakote ER] 1,000 mg PO BEDTIME 07/25/17 Cyclobenzaprine HCl [Flexeril] 10 mg PO BEDTIME 01/24/19 DULoxetine HCL [Cymbalta] 30 mg PO DAILY 01/24/19 Famotidine 40 mg PO DAILY 01/24/19 Polyethylene Glycol 3350 [Miralax] 17 gm PO DAILY 01/24/19 Potassium Chloride Microencaps [Klor-Con M10] 10 meq PO TID 01/24/19 Quetiapine Fumarate 25 mg PO BEDTIME 01/24/19 Additional Instructions: Ice pack to affected area 20 minutes 3 x a day for 2 days during waking hours only;Need to make another appointment with Lung specialist for follow up of lung nodule;continue with all home medications
--- NOTE | 2019-01-24 20:39 | RAD ---
EXAM DESCRIPTION: Ribs,Right 3 Views CLINICAL HISTORY: 58 years Female, fall COMPARISON: None. TECHNIQUE: 3 views right RIBS FINDINGS: No fractures identified. No pleural fluid collections or pneumothoraces are seen. Right upper lobe lung nodule IMPRESSION: No fractures. Incidental right upper lobe lung nodule. Chest CT advised Electronically signed by: Derek Tineo 01/24/2019 8:37 PM CDT
--- NOTE | 2019-01-24 20:53 | RAD ---
EXAM DESCRIPTION: Chest,1 View CLINICAL HISTORY: 58 years Female, fall COMPARISON: Radiographs dating back to December 25, 2010 TECHNIQUE: Single view chest FINDINGS: Right upper lobe lung nodule has developed. No infiltrates are seen. No pleural effusions. No evidence of pneumothorax. Cardiac silhouette and mediastinum are within normal limits. Operative change upper abdomen. IMPRESSION: Right upper lobe lung nodule. Chest CT advised for further evaluation Report called to Dr. Flores at time of report sign off. Electronically signed by: Derek Tineo 01/24/2019 8:51 PM CDT
[2019-01-24] MEDS ORDERED: HYDROcodone 10MG/APAP 325MG 1 EA TAB PO ONE (20:58)
[2019-01-24] MEDS ORDERED: HYDROCOD/APAP 10/325 (ER DISP) # 3 tablets PO ONE (20:58)
[2019-01-24 21:16] VITALS: BP 90/76; TEMP 97.2; O2SAT 88
== END 2019-01-24 21:17 | disposition home or self-care (01) ==
LOC: ER 19:35
DX: S20.211A Contusion of right front wall of thorax, initial encounter (principal); R91.1 Solitary pulmonary nodule; J44.9 Chronic obstructive pulmonary disease, unspecified; K21.9 Gastro-esophageal reflux disease without esophagitis; Z87.891 Personal history of nicotine dependence; Z79.899 Other long term (current) drug therapy; Z88.1 Allergy status to other antibiotic agents; W10.9XXA Fall (on) (from) unspecified stairs and steps, initial encounter; Y92.008 Other place in unspecified non-institutional (private) residence as the place of occurrence of the external cause

== ENCOUNTER → 2019-02-05 | Outpatient (CLI) | payer MEDICARE, MEDICAID ==
--- NOTE | 2019-02-05 12:26 | CT ---
Study: CT Chest. Indication: NODULE Technique: CT imaging of the chest obtained without intravenous administration of contrast. This exam was performed according to our departmental dose-optimization program, which includes automated exposure control, adjustment of the mA and/or kV according to patient size and/or use of iterative reconstruction technique. Comparison: Radiographs January 24, 2019. CT chest July 18, 2017. Findings: Atherosclerosis great vessels, aorta, coronary arteries. Mild cardiomegaly. Post surgical changes gastroesophageal junction. Partial visualization of a suspected exophytic left renal cyst. Degenerative changes of the spine noted. Right anterior second rib fracture noted and appears new. Mild emphysema. On image 31 there is a new right upper lobe pulmonary nodule with spiculated margins measuring 18 mm. Previously noted right upper lobe pulmonary nodule on image 45 redemonstrated and measures stable at approximately 10 mm. Scarring anterior margin left lung apex redemonstrated. No consolidation, pleural effusion, or pneumothorax. 5 mm indistinct nodule along the anterior margin of the major fissure in the left upper lobe on image 32 redemonstrated and is slightly increased in size, previously measuring 4 mm. Impression: New right upper lobe spiculated nodule measuring 18 mm. This is concerning for bronchogenic carcinoma. Correlation with histologic analysis versus PET/CT recommended. Slightly increased size of a tiny left upper lobe pulmonary nodule with a stable additional 10 mm right upper lobe nodules above. Mild emphysema. Mild cardiomegaly. Atherosclerosis. Right anterior second rib fracture noted. Electronically signed by: Nicolas Garcia MD 02/05/2019 12:24 PM CDT
== END ==
LOC: CT 10:45
PROVIDERS: ATTEND Nurse Practitioner Family
DX: R91.8 Other nonspecific abnormal finding of lung field (principal)

== ENCOUNTER → 2019-02-19 | Outpatient (CLI) | payer MEDICARE, MEDICAID | LOC: YCFC.O 11:58 | PROVIDERS: ATTEND Nurse Practitioner Family | DX: R42 Dizziness and giddiness (principal); R73.09 Other abnormal glucose; R00.2 Palpitations ==

== ENCOUNTER → 2019-03-19 | Outpatient (CLI) | payer MEDICARE, MEDICAID | LOC: ECHO 09:14 | PROVIDERS: ATTEND Nurse Practitioner Family | DX: I49.3 Ventricular premature depolarization (principal) ==

== ENCOUNTER → 2019-03-25 | Outpatient (CLI) | payer MEDICARE, MEDICAID | LOC: LAB.O 10:41 | PROVIDERS: ATTEND Nurse Practitioner Family | DX: F31.9 Bipolar disorder, unspecified (principal); Z51.81 Encounter for therapeutic drug level monitoring ==

== ENCOUNTER → 2019-05-17 | Outpatient (CLI) | payer MEDICARE, MEDICAID | LOC: YCFC.O 15:39 | PROVIDERS: ATTEND Nurse Practitioner | DX: N39.0 Urinary tract infection, site not specified (principal) ==

== ENCOUNTER → 2019-05-31 | Outpatient (CLI) | payer MEDICARE, MEDICAID ==
--- NOTE | 2019-05-31 16:40 | RAD ---
EXAM DESCRIPTION: Chest,2 Views CLINICAL HISTORY: COUGH COMPARISON: Previous chest x-ray January 24, 2019 TECHNIQUE: PA/lateral FINDINGS: Nodular density in the right upper lobe overlying the posterior right seventh rib appears unchanged. New nodular density more inferiorly could be a lung lesion or callus formation from a healing rib fracture. Correlate with other studies. Heart size is normal with normal pulmonary vascularity. No pleural effusion or pneumothorax. Lungs are clear with no consolidating infiltrate. Lateral view shows intact sternum and osteopenic T-spine. IMPRESSION: Nodular densities in the right chest. See above. Electronically signed by: Morgan Gutierrez MD 05/31/2019 4:38 PM WEIGHT TRAINER
== END ==
LOC: RAD 14:43
PROVIDERS: ATTEND Nurse Practitioner
DX: R05 Cough (principal); R91.8 Other nonspecific abnormal finding of lung field

== ENCOUNTER 2019-06-19 15:49 | Emergency (ER) | payer MEDICARE, MEDICAID ==
[2019-06-19 16:27] VITALS: TEMP 96.8
[2019-06-19] MEDS ORDERED: ACETAMINOPHEN W/ COD #4 TAB 1EA TAB PO ONE (16:33)
[2019-06-19] MEDS ORDERED: ONDANSETRON ODT 8 MG TAB SL ONE (16:34)
--- NOTE | 2019-06-19 17:41 | CT ---
PROCEDURE: CT Head CLINICAL HISTORY: 58 years Female trauma; pain s/p fall TECHNIQUE: Contiguous axial CT images obtained through the brain without IV contrast. Coronal and sagittal reformats also provided. This CT exam was performed according to our departmental dose-optimization program, which includes one or more of the following dose reduction techniques: automated exposure control, adjustment of the mA and/or kV according to patient size, and/or use of iterative reconstruction technique. COMPARISON: No prior exams provided for comparison. FINDINGS: There is no skull fracture, intracranial hemorrhage, extra-axial collection, or acute transcortical infarction. The ventricles are normal in size and contour without mass-effect or midline shift. The paranasal sinuses and mastoid air cells are clear. IMPRESSION: No acute intracranial abnormalities. Electronically signed by: Zoya Luciano MD 06/19/2019 5:40 PM BRIDGE TENDER
--- NOTE | 2019-06-19 17:57 | RAD ---
EXAM DESCRIPTION: XR Chest, 1 View CLINICAL HISTORY: 58 years Female pain s/p fall TECHNIQUE: One view of the chest. COMPARISON: Comparison is made with the prior radiographs dated 05/31/2019, and the prior CT scan dated 02/05/2019 FINDINGS: Again seen are at least four nodules in the right lung. There may be a new nodule in the right lung base. The lungs are otherwise clear. No pleural effusion or pneumothorax. The cardiomediastinal silhouette and central pulmonary vasculature are normal. No acute fracture in the chest. IMPRESSION: Right-sided pulmonary nodules again seen with a possible new nodule in the right lung base. Correlate with history and consider further evaluation with PET/CT or biopsy as indicated. No acute injury in the chest. Electronically signed by: Zoya Luciano MD 06/19/2019 5:56 PM [facility]
--- NOTE | 2019-06-19 18:22 | RAD ---
EXAM DESCRIPTION: XR Femur, Left (accession [id number]), XR Pelvis (accession [id number]) CLINICAL HISTORY: 58 years Female pain s/p fall TECHNIQUE: One view of the pelvis and two views of the left femur are provided. COMPARISON: 04/10/2018 FINDINGS: Patient again seen to be status post open reduction internal fixation of a now-healed left intertrochanteric fracture utilizing a gamma nail. Suture anchors again noted in the pubic symphysis. Pelvic phleboliths. Patient is osteoporotic. Pelvic or left femoral fracture or dislocation. No evidence of hardware loosening. No aggressive osseous lesion. IMPRESSION: Stable postsurgical changes without acute pelvic or left femoral fracture. Electronically signed by: Zoya Luciano MD 06/19/2019 6:20 PM [facility]
--- NOTE | 2019-06-19 18:22 | RAD ---
EXAM DESCRIPTION: XR Femur, Left (accession [id number]), XR Pelvis (accession [id number]) CLINICAL HISTORY: 58 years Female pain s/p fall TECHNIQUE: One view of the pelvis and two views of the left femur are provided. COMPARISON: 04/10/2018 FINDINGS: Patient again seen to be status post open reduction internal fixation of a now-healed left intertrochanteric fracture utilizing a gamma nail. Suture anchors again noted in the pubic symphysis. Pelvic phleboliths. Patient is osteoporotic. Pelvic or left femoral fracture or dislocation. No evidence of hardware loosening. No aggressive osseous lesion. IMPRESSION: Stable postsurgical changes without acute pelvic or left femoral fracture. Electronically signed by: Zoya Luciano MD 06/19/2019 6:20 PM [facility]
[2019-06-19 18:24] VITALS: BP 100/70; O2SAT 90
--- NOTE | 2019-06-19 18:25 | RAD ---
EXAM DESCRIPTION: XR Ribs, Left 3 Views CLINICAL HISTORY: 58 years Female pain s/p fall TECHNIQUE: One view of the chest and two views of the left ribs. COMPARISON: Correlation is made with the prior radiographs of the chest dated 05/31/2019. FINDINGS: Again seen are right-sided pulmonary nodules. No focal airspace infiltrate, pleural effusion, or pneumothorax. Normal cardiomediastinal silhouette. Suspected acute, nondisplaced fracture of the left 10th rib anteriorly. No other visualized acute fracture in the chest. No aggressive osseous lesion. IMPRESSION: Suspected acute, nondisplaced fracture of the left 10th rib anteriorly. No airspace infiltrate, pleural effusion, or pneumothorax. Electronically signed by: Zoya Luciano MD 06/19/2019 6:23 PM SUBSTATION ENGINEER
--- NOTE | 2019-06-19 20:35 | ED.PDOC ---
History of Present Illness - General Chief Complaint: Trauma Stated Complaint: L rib, L hip, L leg pain and head pain Time Seen by Provider: 06/19/19 16:31 Source: patient Exam Limitations: no limitations Additional Information: 58yo F h/o prior femur fracture now s/p fall 30mins FLAT CLOTHIER. Reports pain at left hip, left chest wall, thoracic back, and head. Denies SOB, bleeding, LOC, seizure, incontinence, syncope. Reported fall was mechanical only, as she was walking without her cane. - History of Present Illness Occurred: just prior to arrival Severity: moderate Pain Location: head, chest, lower extremity Method of Injury: fall Improving Factors: nothing Worsening Factors: nothing Loss of Consciousness: no loss of consciousness Associated Symptoms (Fall): denies symptoms Allergies/Adverse Reactions: Allergies Cephalexin [From Keflex] Allergy (Verified 06/19/19 16:33) Rash Home Medications: Ambulatory Orders Pregabalin [Lyrica] 150 mg PO BID 03/22/14 Estradiol [Estrace] 1 mg PO DAILY 07/24/17 FLUoxetine HCL [Prozac] 10 mg PO DAILY 07/24/17 Metoclopramide Tab [Reglan Tab] 5 mg PO TIDFD 07/24/17 Pantoprazole Sodium 40 mg PO DAILY 07/24/17 Divalproex Sodium [Depakote ER] 1,000 mg PO BEDTIME 07/25/17 Cyclobenzaprine HCl [Flexeril] 10 mg PO BEDTIME 01/24/19 DULoxetine HCL [Cymbalta] 30 mg PO DAILY 01/24/19 Famotidine 40 mg PO DAILY 01/24/19 Polyethylene Glycol 3350 [Miralax] 17 gm PO DAILY 01/24/19 Potassium Chloride Microencaps [Klor-Con M10] 10 meq PO TID 01/24/19 Quetiapine Fumarate 25 mg PO BEDTIME 01/24/19 Acetaminophen W/ Codeine [Tylenol/Codeine #4 300-60 mg] 1 ea PO Q6H PRN #20 tab 06/19/19 Review of Systems - Review of Systems Musculoskeletal: States: joint pain Neurological: States: headache All other Systems: Reviewed and Negative Past Medical History (General) - Patient Medical History Hx Seizures: No Hx Stroke: No Hx Dementia: No Hx Asthma: Yes Hx of COPD: Yes Hx Cardiac Disorders: No Hx Congestive Heart Failure: No Hx Pacemaker: No Hx Hypertension: No Hx Thyroid Disease: No Hx Diabetes: No Hx Gastroesophageal Reflux: Yes - History of bleeding ulcer Hx Renal Disease: No Hx Cancer: No Hx of HIV: No Hx Hepatitis C: No Hx MRSA: No Surgical History: gastric bypass, Hysterectomy, other - Vaccination History Hx Tetanus, Diphtheria Vaccination: No Hx Influenza Vaccination: Yes Hx Pneumococcal Vaccination: Yes - Social History Hx Tobacco Use: Yes Hx Chewing Tobacco Use: No Hx Alcohol Use: No Hx Substance Use: No Hx Substance Use Treatment: No Hx Depression: No Hx Physical Abuse: No Hx Emotional Abuse: No Hx Suspected Abuse: No - Female History Patient is a Female of Child Bearing Age (10 -59 yrs old): No Patient : No Family Medical History - Family History Father Living Status: Age at (years of age): 65 Cause of : renal cancer Hx Cardiac Disease: Yes Mother Living Status: Hx Family Asthma: No Hx Family Congestive Heart Failure: No Hx Family Hypertension: Yes Hx Family Stroke: No Hx Cardiac Disease: No Hx Family Diabetes: Yes Hx Family Cancer: No Physical Exam - Physical Exam General Appearance: Alert, No apparent distress, Well Developed Head Injury: no evidence of injury ENT Exam: hearing grossly normal, no evidence of ENT injury Neck Exam: non-tender, full range of motion Cardiovascular/Respiratory: regular rate, rhythm, no M/R/G, normal peripheral pulses Gastrointestinal/Abdominal: normal bowel sounds, non tender Back Exam: normal inspection, no CVA tenderness, no vertebral tenderness Extremity Exam: no evidence of injury, pelvis stable, bony-point tenderness - left greater trochanter with ecchymosis or edema Neurologic: supervisor post wave II-XII nml as tested, no motor/sensory deficits, oriented x 3 Skin Exam: normal color, warm/dry Progress - Progress Progress: 06/19/19 18:39 Pain and edema s/p injury, no evidence of acute neurovascular compromise. Concern for fx, but consider strain/sprain, dislocation as well. Plan for pain control in ED, labs/ imaging as appropriate, with goal of symptomatic improvement and relief. Rib fx noted on xrays, patient without significant splinting, hypoxia, or respiratory distressed, and patient remained neurovascularly intact. ED warnings given and outpatient f/u with PCP. Cash Miller MD #[id number] Departure - Departure Clinical Impression: Fracture of one rib Qualifiers: Encounter type: initial encounter Fracture type: closed Laterality: left Qualified Code(s): S22.32XA - Fracture of one rib, left side, initial encounter for closed fracture Hip pain Qualifiers: Laterality: left Qualified Code(s): M25.552 - Pain in left hip Time of Disposition: 18:30 Disposition: Discharge to Home or Self Care Condition: Good Departure Forms: ED Discharge - Pt. Copy, Patient Portal Self Enrollment Instructions: DI for Trauma, Rib Fracture (DC) Diet: resume usual diet Activity: ambulate only with walker Referrals: Jaimee Sullivan FNP [Primary Care Provider] - 1-2 Weeks Prescriptions: Acetaminophen W/ Codeine [Tylenol/Codeine #4 300-60 mg] 1 ea PO Q6H PRN #20 tab PRN Reason: Severe Pain Home Medications: Ambulatory Orders Pregabalin [Lyrica] 150 mg PO BID 03/22/14 Estradiol [Estrace] 1 mg PO DAILY 07/24/17 FLUoxetine HCL [Prozac] 10 mg PO DAILY 07/24/17 Metoclopramide Tab [Reglan Tab] 5 mg PO TIDFD 07/24/17 Pantoprazole Sodium 40 mg PO DAILY 07/24/17 Divalproex Sodium [Depakote ER] 1,000 mg PO BEDTIME 07/25/17 Cyclobenzaprine HCl [Flexeril] 10 mg PO BEDTIME 01/24/19 DULoxetine HCL [Cymbalta] 30 mg PO DAILY 01/24/19 Famotidine 40 mg PO DAILY 01/24/19 Polyethylene Glycol 3350 [Miralax] 17 gm PO DAILY 01/24/19 Potassium Chloride Microencaps [Klor-Con M10] 10 meq PO TID 01/24/19 Quetiapine Fumarate 25 mg PO BEDTIME 01/24/19 Acetaminophen W/ Codeine [Tylenol/Codeine #4 300-60 mg] 1 ea PO Q6H PRN #20 tab 06/19/19
== END 2019-06-19 18:48 | disposition home or self-care (01) ==
LOC: ER 15:49
DX: S22.32XA Fracture of one rib, left side, initial encounter for closed fracture (principal); M25.552 Pain in left hip; M54.6 Pain in thoracic spine; R51 Headache; J44.9 Chronic obstructive pulmonary disease, unspecified; K21.9 Gastro-esophageal reflux disease without esophagitis; Z87.81 Personal history of (healed) traumatic fracture; Z79.899 Other long term (current) drug therapy; Z88.1 Allergy status to other antibiotic agents; Z87.11 Personal history of peptic ulcer disease; Z87.891 Personal history of nicotine dependence; W18.30XA Fall on same level, unspecified, initial encounter; Y93.01 Activity, walking, marching and hiking; Y92.9 Unspecified place or not applicable

== ENCOUNTER → 2019-08-12 | Outpatient (CLI) | payer MEDICARE, MEDICAID ==
--- NOTE | 2019-08-13 12:42 | RAD ---
EXAM: Abdomen 1 View CLINICAL HISTORY: abdominal distension COMPARISON STUDY: CT abdomen and pelvis from July 29, 2017 TECHNICAL: Flat and upright views of the abdomen were performed. FINDINGS: Two views of the abdomen show a large amount of stool throughout the colon. There is no bowel obstruction. Ovoid air-containing structure in the left upper quadrant appears to be retained material in the distended stomach. There are upper abdomen operative clips. Internal fixation of the left hip is noted. Small amount of air within the pelvis could indicate a distended urinary bladder. There is no evidence of free air. There are no abnormal calcifications. The bones are negative. IMPRESSION: 1. The amount of stool can indicate constipation without bowel obstruction. 2. 1.5 x 10 cm air containing structure in the left upper quadrant could be retained food in the distended stomach, retained contents of other etiology to include a bezoar. Electronically signed by: Sony Craft MD 08/13/2019 12:40 PM [employer] MILLING MACHINE OPERATOR
== END ==
LOC: YCFC.O 15:16
PROVIDERS: ATTEND Nurse Practitioner
DX: R14.0 Abdominal distension (gaseous) (principal); N39.0 Urinary tract infection, site not specified

== ENCOUNTER → 2019-08-13 | Outpatient (CLI) | payer MEDICARE, MEDICAID | LOC: YCFC.O 09:24 | PROVIDERS: ATTEND Nurse Practitioner | DX: R14.0 Abdominal distension (gaseous) (principal) ==

== ENCOUNTER → 2019-11-11 | Outpatient (CLI) | payer MEDICARE, MEDICAID ==
--- NOTE | 2019-11-11 23:28 | RAD ---
EXAM DESCRIPTION: Knee,Right Complete: CR/DR/XR. CLINICAL HISTORY: 59 years FemaleKNEE PAIN COMPARISON: Right knee radiographs March 2018. TECHNIQUE: 4 views right knee AP [place], 45 degrees standing, lateral standing, and patella sunrise view FINDINGS: Bone density is decreased. Bilateral compartment loss more medial than lateral. Calcification in the meniscus more lateral than medial. No acute bony abnormality. No marginal spurs. Patellofemoral joint is symmetric. No effusion. IMPRESSION: Medial more than lateral compartment loss. Chondrocalcinosis. Patellofemoral joint is symmetric. No acute bony abnormality. Electronically signed by: Andrez العراقي MD 11/11/2019 11:26 PM CDT
== END ==
LOC: RAD 12:12
PROVIDERS: ATTEND Orthopaedic Surgery
DX: M11.261 Other chondrocalcinosis, right knee (principal); M85.861 Other specified disorders of bone density and structure, right lower leg

== ENCOUNTER → 2019-12-09 | Outpatient (CLI) | payer MEDICARE, MEDICAID | LOC: YCFC.O 11:24 | PROVIDERS: ATTEND Nurse Practitioner | DX: R30.9 Painful micturition, unspecified (principal) ==

== ENCOUNTER → 2019-12-16 | Outpatient (CLI) | payer MEDICARE, MEDICAID | LOC: LAB.O 16:39 | PROVIDERS: ATTEND Nurse Practitioner | DX: R06.00 Dyspnea, unspecified (principal) ==

== ENCOUNTER → 2019-12-17 | Outpatient (CLI) | payer MEDICARE, MEDICAID ==
--- NOTE | 2019-12-17 13:15 | US ---
EXAM DESCRIPTION: Venous,Lower Extremity LT (accession [id number]), Venous,Lower Extremity RT (accession [id number]): Ultrasound. CLINICAL HISTORY: EDEMA OF LOWER EXTREMITY COMPARISON: None Available. TECHNIQUE: Two -dimensional and doppler sonographic evaluation of the deep venous system of the bilateral lower extremities. FINDINGS: Doppler evaluation shows normal color flow and normal phasicity and augmentation of the bilateral common femoral veins, junctions with the bilateral proximal saphenous veins, femoral veins, popliteal veins, greater, peroneal and posterior tibial veins. These veins showed normal occlusion with transducer pressure. Two-dimensional survey showed no echogenic clot within these veins. Moderate amount of atherosclerotic calcification in the adjacent arterial vessels. IMPRESSION: Duplex ultrasound evaluation of the bilateral lower extremity deep venous systems showing no evidence of thrombosis. Moderate amount of atherosclerotic calcification in the adjacent arterial vessels. Correlate for peripheral vascular disease. Electronically signed by: Andrez العراقي MD 12/17/2019 1:14 PM CDT
--- NOTE | 2019-12-17 13:16 | US ---
EXAM DESCRIPTION: Venous,Lower Extremity LT (accession [id number]), Venous,Lower Extremity RT (accession [id number]): Ultrasound. CLINICAL HISTORY: EDEMA OF LOWER EXTREMITY COMPARISON: None Available. TECHNIQUE: Two -dimensional and doppler sonographic evaluation of the deep venous system of the bilateral lower extremities. FINDINGS: Doppler evaluation shows normal color flow and normal phasicity and augmentation of the bilateral common femoral veins, junctions with the bilateral proximal saphenous veins, femoral veins, popliteal veins, greater, peroneal and posterior tibial veins. These veins showed normal occlusion with transducer pressure. Two-dimensional survey showed no echogenic clot within these veins. Moderate amount of atherosclerotic calcification in the adjacent arterial vessels. IMPRESSION: Duplex ultrasound evaluation of the bilateral lower extremity deep venous systems showing no evidence of thrombosis. Moderate amount of atherosclerotic calcification in the adjacent arterial vessels. Correlate for peripheral vascular disease. Electronically signed by: Andrez العراقي MD 12/17/2019 1:14 PM CDT
== END ==
LOC: LAB.O 08:03
PROVIDERS: ATTEND Nurse Practitioner
DX: I70.90 Unspecified atherosclerosis (principal); R60.0 Localized edema; N39.0 Urinary tract infection, site not specified

== ENCOUNTER → 2019-12-31 | Outpatient (CLI) | payer MEDICARE, MEDICAID | LOC: YCFC.O 10:52 | PROVIDERS: ATTEND Nurse Practitioner | DX: R06.00 Dyspnea, unspecified (principal); R94.5 Abnormal results of liver function studies; Z11.59 Encounter for screening for other viral diseases ==

== ENCOUNTER → 2020-01-06 | Outpatient (CLI) | payer MEDICARE, MEDICAID | LOC: YCFC.O 12:06 | PROVIDERS: ATTEND Nurse Practitioner | DX: R94.5 Abnormal results of liver function studies (principal); Z11.59 Encounter for screening for other viral diseases ==

== ENCOUNTER 2020-02-01 19:09 | Emergency (ER) | payer MEDICARE, MEDICAID ==
[2020-02-01] MEDS ORDERED: SODIUM CHLORIDE 0.9% 1000ML 1,000 ML IVS PRN (19:53)
--- NOTE | 2020-02-01 20:42 | RAD ---
EXAM: Pelvis CLINICAL INDICATION: Patient fell COMPARISON: 08/16/2019 FINDINGS: A single view of the pelvis reveals an intact bony ring with no fractures or bone lesions. Surgical changes are noted in the left proximal femur. The osseous structures are otherwise unremarkable except for diffuse osteopenia. IMPRESSION: No acute fracture or dislocation. Electronically signed by: Rudy Carter MD 02/01/2020 8:41 PM CDT
--- NOTE | 2020-02-01 20:43 | RAD ---
EXAM: Hip,Left 2 Views CLINICAL INDICATION: Patient fell COMPARISON: 11/20/2017 FINDINGS: 2 views of the left hip reveal no acute fracture or dislocation. Surgical changes from ORIF of a previous subtrochanteric fracture are noted in good alignment. The osseous structures are otherwise unremarkable. IMPRESSION: No acute fracture or dislocation. Electronically signed by: Rudy Carter MD 02/01/2020 8:41 PM CDT
--- NOTE | 2020-02-01 20:43 | RAD ---
EXAM: Shoulder,Left 2 or More Views CLINICAL INDICATION: Left shoulder pain COMPARISON: There is no previous study for comparison. FINDINGS: 2 views of the left shoulder reveal no acute fracture or dislocation. There is deformity of the humeral neck suggesting old healed fracture. The osseous structures are otherwise unremarkable. IMPRESSION: No acute fracture or dislocation. Electronically signed by: Rudy Carter MD 02/01/2020 8:42 PM CDT
[2020-02-01 20:44] VITALS: TEMP 98
--- NOTE | 2020-02-01 20:55 | CT ---
PROCEDURE: CT HEAD WITHOUT IV CONTRAST CLINICAL HISTORY: FALL HEADACHE TECHNIQUE: Contiguous axial CT images obtained through the brain without IV contrast. Coronal and sagittal reformatted images were provided. This exam was performed according to our departmental dose-optimization program, which includes automated exposure control, adjustment of the mA and/or kV according to patient size and/or use of iterative reconstruction technique. COMPARISON: 06/19/2019 FINDINGS: Brain: No significant white matter changes. No focal mass effect. [place]-white matter differentiation is within normal limits. No hemorrhage. Ventricles: No ventriculomegaly or midline shift. Extra-axial spaces: No extra-axial collection or hemorrhage. Paranasal sinuses and mastoid air cells: Well-aerated Vessels: There is atherosclerotic disease of the internal carotid arteries bilaterally. Bones: Unremarkable Soft tissues: Unremarkable IMPRESSION: No acute intracranial or extra-axial abnormality. Electronically signed by: Goran Banerjee MD 02/01/2020 8:53 PM CDT
[2020-02-01] MEDS ORDERED: HYDROcodone 10MG/APAP 325MG 1 EA TAB PO ONE (21:10)
--- NOTE | 2020-02-01 21:13 | ED.PDOC ---
History of Present Illness - General Chief Complaint: Trauma Stated Complaint: FALL, HEADACHE, HIP PAIN Time Seen by Provider: 02/01/20 19:54 Additional Information: Patient is a 59-year-old female who presents to the ED with chief complaint of fall. Patient walks with a cane and she indicates her cane got stuck in a hole and she lost her balance and fell onto her left side. Patient has history of left total hip replacement and she is here to make sure that her prosthesis is intact. Patient indicates she bumped her head but did not lose consciousness. She denies neck pain, chest pain, back pain, abdominal pain. She further denies nausea, vomiting, fever, chills. Patient indicates her pain is a 4/10 in intensity, better with rest worse with movement. - History of Present Illness Allergies/Adverse Reactions: Allergies Cephalexin [From Keflex] Allergy (Verified 06/19/19 16:33) Rash Home Medications: Ambulatory Orders Pregabalin [Lyrica] 150 mg PO BID 03/22/14 Estradiol [Estrace] 1 mg PO DAILY 07/24/17 FLUoxetine HCL [Prozac] 10 mg PO DAILY 07/24/17 Metoclopramide Tab [Reglan Tab] 5 mg PO TIDFD 07/24/17 Pantoprazole Sodium 40 mg PO DAILY 07/24/17 Divalproex Sodium [Depakote ER] 1,000 mg PO BEDTIME 07/25/17 Cyclobenzaprine HCl [Flexeril] 10 mg PO BEDTIME 01/24/19 DULoxetine HCL [Cymbalta] 30 mg PO DAILY 01/24/19 Famotidine 40 mg PO DAILY 01/24/19 Polyethylene Glycol 3350 [Miralax] 17 gm PO DAILY 01/24/19 Potassium Chloride Microencaps [Klor-Con M10] 10 meq PO TID 01/24/19 Quetiapine Fumarate 25 mg PO BEDTIME 01/24/19 Acetaminophen W/ Codeine [Tylenol/Codeine #4 300-60 mg] 1 ea PO Q6H PRN #20 tab 06/19/19 Acetaminophen W/ Codeine [Tylenol W/ CODEINE #3] 1 ea PO Q6H PRN #20 02/01/20 Review of Systems - Review of Systems Constitutional: States: no symptoms reported Respiratory: States: no symptoms reported. Denies: cough, short of breath Cardiology: States: no symptoms reported. Denies: chest pain, palpitations, syncope Gastrointestinal/Abdominal: States: no symptoms reported. Denies: abdominal pain, nausea, vomiting Musculoskeletal: States: see HPI Skin: States: no symptoms reported. Denies: rash Neurological: States: no symptoms reported, other - Negative dizziness All other Systems: Reviewed and Negative Past Medical History (General) - Patient Medical History Hx Seizures: No Hx Stroke: No Hx Dementia: No Hx Asthma: Yes Hx of COPD: Yes Hx Cardiac Disorders: No Hx Congestive Heart Failure: No Hx Pacemaker: No Hx Hypertension: No Hx Thyroid Disease: No Hx Diabetes: No Hx Gastroesophageal Reflux: Yes - History of bleeding ulcer Hx Renal Disease: No Hx Cancer: Yes - to her nose Hx of HIV: No Hx Hepatitis C: No Hx MRSA: No - Vaccination History Hx Tetanus, Diphtheria Vaccination: No Hx Influenza Vaccination: Yes Hx Pneumococcal Vaccination: Yes - Social History Hx Tobacco Use: Yes Hx Chewing Tobacco Use: No Hx Alcohol Use: No Hx Substance Use: No Hx Substance Use Treatment: No Hx Depression: No Hx Physical Abuse: No Hx Emotional Abuse: No Hx Suspected Abuse: No - Female History Patient : No Family Medical History - Family History Father Living Status: Age at (years of age): 65 Cause of : renal cancer Hx Cardiac Disease: Yes Mother Living Status: Hx Family Asthma: No Hx Family Congestive Heart Failure: No Hx Family Hypertension: Yes Hx Family Stroke: No Hx Cardiac Disease: No Hx Family Diabetes: Yes Hx Family Cancer: No Physical Exam - Physical Exam General Appearance: Alert, Comfortable, Frail, No apparent distress, Other - Patient appears older than her stated age Neck: non-tender, full range of motion, supple, normal inspection Respiratory: chest non-tender, lungs clear, normal breath sounds, no respiratory distress, no accessory muscle use Cardiovascular/Chest: normal peripheral pulses, regular rate, rhythm, no edema, no gallop, no JVD, no murmur Gastrointestinal/Abdominal: normal bowel sounds, non tender, soft Back Exam: no CVA tenderness, no vertebral tenderness Extremity: other - Normal inspection left hip. Negative abrasion or ecchymoses or edema. Mild to moderate tenderness palpation over the greater trochanter.Full range of motion hip. Neurologic: no motor/sensory deficits, alert, normal mood/affect Progress - Progress Progress: 02/01/20 21:15 Patient's imaging is unremarkable and clinically patient with contusion only. Will DC with analgesics and patient to rest and follow-up with her PCP. Vital signs stable, patient is NAD and looks clinically well and I believe is safe for discharge with outpatient follow-up. Follow-up instructions, discharge instructions and return to ED precautions discussed with patient. Patient voice s understanding and willingness to comply with instructions. radiographic results have been discussed with the patient, and all questions answered. Patient is happy with plan. Departure - Departure Clinical Impression: Contusion of hip, left Qualifiers: Encounter type: initial encounter Qualified Code(s): S70.02XA - Contusion of left hip, initial encounter Fall Qualifiers: Encounter type: initial encounter Qualified Code(s): W19.XXXA - Unspecified fall, initial encounter Time of Disposition: 21:16 Disposition: Discharge to Home or Self Care Condition: Fair Departure Forms: ED Discharge - Pt. Copy, Patient Portal Self Enrollment Instructions: DI for Trauma, Contusion (DC), Preventing Falls Referrals: Jaimee Sullivan FNP [Primary Care Provider] - 1-2 Weeks Prescriptions: Acetaminophen W/ Codeine [Tylenol W/ CODEINE #3] 1 ea PO Q6H PRN #20 PRN Reason: Pain Home Medications: Ambulatory Orders Pregabalin [Lyrica] 150 mg PO BID 03/22/14 Estradiol [Estrace] 1 mg PO DAILY 07/24/17 FLUoxetine HCL [Prozac] 10 mg PO DAILY 07/24/17 Metoclopramide Tab [Reglan Tab] 5 mg PO TIDFD 07/24/17 Pantoprazole Sodium 40 mg PO DAILY 07/24/17 Divalproex Sodium [Depakote ER] 1,000 mg PO BEDTIME 07/25/17 Cyclobenzaprine HCl [Flexeril] 10 mg PO BEDTIME 01/24/19 DULoxetine HCL [Cymbalta] 30 mg PO DAILY 01/24/19 Famotidine 40 mg PO DAILY 01/24/19 Polyethylene Glycol 3350 [Miralax] 17 gm PO DAILY 01/24/19 Potassium Chloride Microencaps [Klor-Con M10] 10 meq PO TID 01/24/19 Quetiapine Fumarate 25 mg PO BEDTIME 01/24/19 Acetaminophen W/ Codeine [Tylenol/Codeine #4 300-60 mg] 1 ea PO Q6H PRN #20 tab 06/19/19 Acetaminophen W/ Codeine [Tylenol W/ CODEINE #3] 1 ea PO Q6H PRN #20 02/01/20
[2020-02-01 21:30] VITALS: BP 121/77; O2SAT 94
== END 2020-02-01 21:30 | disposition home or self-care (01) ==
LOC: ER 19:09
DX: S70.02XA Contusion of left hip, initial encounter (principal); J44.9 Chronic obstructive pulmonary disease, unspecified; K21.9 Gastro-esophageal reflux disease without esophagitis; Z96.642 Presence of left artificial hip joint; Z85.828 Personal history of other malignant neoplasm of skin; Z79.899 Other long term (current) drug therapy; Z88.1 Allergy status to other antibiotic agents; Z87.891 Personal history of nicotine dependence; W18.30XA Fall on same level, unspecified, initial encounter; Y92.009 Unspecified place in unspecified non-institutional (private) residence as the place of occurrence of the external cause

== ENCOUNTER → 2020-04-06 | Outpatient (CLI) | payer MEDICARE, MEDICAID | LOC: YCFC.O 15:21 | PROVIDERS: ATTEND Nurse Practitioner | DX: R30.9 Painful micturition, unspecified (principal); R53.83 Other fatigue; Z13.21 Encounter for screening for nutritional disorder ==

== ENCOUNTER → 2020-05-01 | Outpatient (CLI) | payer MEDICARE, MEDICAID | LOC: YCFC.O 15:57 | PROVIDERS: ATTEND Nurse Practitioner | DX: R60.0 Localized edema (principal); N39.0 Urinary tract infection, site not specified ==

== ENCOUNTER → 2020-06-20 | Outpatient (CLI) | payer MEDICARE, MEDICAID | LOC: ECHO 13:01 | PROVIDERS: ATTEND Nurse Practitioner | DX: I27.20 Pulmonary hypertension, unspecified (principal); I34.0 Nonrheumatic mitral (valve) insufficiency; I36.1 Nonrheumatic tricuspid (valve) insufficiency ==

== ENCOUNTER → 2020-06-28 | Outpatient (CLI) | payer MEDICARE, MEDICAID | LOC: YCFC.O 15:23 | PROVIDERS: ATTEND Nurse Practitioner Family | DX: Z20.828 Contact with and (suspected) exposure to other viral communicable diseases (principal) ==

== ENCOUNTER 2020-08-05 15:24 | Emergency (ER) | payer MEDICARE, MEDICAID ==
--- NOTE | 2020-08-05 15:46 | ED.PDOC ---
History of Present Illness - General Chief Complaint: Trauma Stated Complaint: right wrist injury Time Seen by Provider: 08/05/20 15:44 Source: patient, family - History of Present Illness Initial Comments: 59-year-old female with history of COPD, asthma, polycythemia, presenting to the emergency department for right wrist pain after ground-level fall. Patient states she does not know why she fell, she remembers waking up on the ground. She denies any preceding chest pain or shortness of breath, but states she was feeling dizzy prior to the fall. She denies any dizziness or chest pain at this time. No blood thinners. She states she did hit her head during the fall, but no clear loss of consciousness. Fall occurred approximately 45 minutes ago. Allergies/Adverse Reactions: Allergies Cephalexin [From Keflex] Allergy (Verified 06/19/19 16:33) Rash Home Medications: Ambulatory Orders Pregabalin [Lyrica] 150 mg PO BID 03/22/14 Estradiol [Estrace] 1 mg PO DAILY 07/24/17 FLUoxetine HCL [Prozac] 10 mg PO DAILY 07/24/17 Metoclopramide Tab [Reglan Tab] 5 mg PO TIDFD 07/24/17 Pantoprazole Sodium 40 mg PO DAILY 07/24/17 Divalproex Sodium [Depakote ER] 1,000 mg PO BEDTIME 07/25/17 Cyclobenzaprine HCl [Flexeril] 10 mg PO BEDTIME 01/24/19 DULoxetine HCL [Cymbalta] 30 mg PO DAILY 01/24/19 Famotidine 40 mg PO DAILY 01/24/19 Polyethylene Glycol 3350 [Miralax] 17 gm PO DAILY 01/24/19 Potassium Chloride Microencaps [Klor-Con M10] 10 meq PO TID 01/24/19 Quetiapine Fumarate 25 mg PO BEDTIME 01/24/19 Acetaminophen W/ Codeine [Tylenol/Codeine #4 300-60 mg] 1 ea PO Q6H PRN #20 tab 06/19/19 Acetaminophen W/ Codeine [Tylenol W/ CODEINE #3] 1 ea PO Q6H PRN #20 02/01/20 HYDROcodone 5MG/APAP 325MG [[place] 5/325] 1 - 2 tablet PO Q6H PRN 5 Days #20 tab 08/05/20 Methocarbamol [Robaxin] 750 mg PO Q6H PRN 5 Days #20 tab 08/05/20 Review of Systems - Review of Systems Constitutional: Denies: chills, fever EENTM: Denies: double vision, ear discharge, nose congestion Respiratory: Denies: cough, short of breath, wheezing Cardiology: Denies: chest pain, edema, palpitations Gastrointestinal/Abdominal: Denies: abdominal pain, diarrhea, nausea, vomiting Genitourinary: Denies: dysuria, hematuria Musculoskeletal: States: joint pain. Denies: joint swelling, muscle pain, neck pain Skin: Denies: lesions, lumps Neurological: Denies: depressed, headache, paresthesia, tingling Endocrine: States: no symptoms reported Hematologic/Lymphatic: States: no symptoms reported Past Medical History (General) - Patient Medical History Hx Seizures: No Hx Stroke: No Hx Dementia: No Hx Asthma: Yes Hx of COPD: Yes Hx Cardiac Disorders: No Hx Congestive Heart Failure: No Hx Pacemaker: No Hx Hypertension: No Hx Thyroid Disease: No Hx Diabetes: No Hx Gastroesophageal Reflux: Yes - History of bleeding ulcer Hx Renal Disease: No Hx Cancer: Yes - to her nose Hx of HIV: No Hx Hepatitis C: No Hx MRSA: No Surgical History: Hysterectomy, other - Vaccination History Hx Tetanus, Diphtheria Vaccination: No Hx Influenza Vaccination: Yes Hx Pneumococcal Vaccination: Yes - Social History Hx Tobacco Use: Yes Hx Chewing Tobacco Use: No Hx Alcohol Use: No Hx Substance Use: No Hx Substance Use Treatment: No Hx Depression: No Hx Physical Abuse: No Hx Emotional Abuse: No Hx Suspected Abuse: No - Female History Patient : No Family Medical History - Family History Father Living Status: Age at (years of age): 65 Cause of : renal cancer Hx Cardiac Disease: Yes Mother Living Status: Hx Family Asthma: No Hx Family Congestive Heart Failure: No Hx Family Hypertension: Yes Hx Family Stroke: No Hx Cardiac Disease: No Hx Family Diabetes: Yes Hx Family Cancer: No Physical Exam - Physical Exam General Appearance: Alert, Comfortable Head Injury: no evidence of injury Eye Exam: bilateral normal ENT Exam: hearing grossly normal, no evidence of ENT injury Neck Exam: non-tender, full range of motion Cardiovascular/Respiratory: regular rate, rhythm, no M/R/G, normal peripheral pulses Gastrointestinal/Abdominal: normal bowel sounds, non tender Back Exam: normal inspection, no CVA tenderness, no vertebral tenderness Extremity Exam: other - Right distal forearm and wrist tenderness, mild left thumb tenderness Neurologic: channeler outsole II-XII nml as tested, no motor/sensory deficits, alert, oriented x 3 Skin Exam: normal color, warm/dry - Angel Coma Score Best Eye Response (Angel): (4) open spontaneously Best Verbal Response ([place]): (5) oriented Best Motor Response (Angel): (6) obeys commands Progress - Progress Progress: 08/05/20 16:31 Rechecked. Patient now reporting low back pain, radiating to the right flank. Her pelvis is stable, hips nontender, she has mild midline lumbar tenderness without step-offs or deformities. Will get x-ray of lumbar spine. 08/05/20 17:35 Rechecked. Discussed x-ray/lab findings, as well as need for follow-up with Dr. Brandon. Discussed equivocal findings on forearm x-ray. I explained that I suspect there is a distal radius fracture with a small cortical break, although radiology read x-rays negative. Discussed plan to place in splint for now with plan to follow-up with orthopedics next week for recheck. Opiate warnings given. I discussed pulmonary nodule noted on chest x-ray and recommended follow- up with networks software consultant. She has a networks software consultant in [place] that she sees, and they have been following pulmonary nodules in the past. They will follow up with her networks software consultant to discuss any further work-up. Strict warnings given to return the emergency room for worsening pain, change in mental status, fever, any other injuries and need to be evaluated, or any other concerns. DDx: Arrhythmia, anemia, dehydration, mechanical fall, fracture, pneumothorax, intracranial hemorrhage MDM: Patient presented with fall of unclear circumstances. Patient states she does not remember the fall and does not know why she fell. She states she was feeling slightly dizzy prior to the fall and states she did hit her head. CT of the head is negative. There is a questionable distal radius fracture on the right, although radiology read the x-ray is negative. She is markedly tender over the distal radius and there is what appears to be a small cortical break of the distal radius, will place in splint and referred to orthopedics for outpatient follow-up. All other x-rays and labs were unremarkable. Trauma warnings given. Alverto Cerda DO [facility] #[id number] 08/05/20 17:41 - Results/Orders Results/Orders: EKG reviewed personally by me at 1557. Normal sinus rhythm, rate of 73, left axis, normal intervals, poor R wave progression, nonspecific T wave changes, no ST segment elevations or depressions. right wrist x-ray reviewed personally by me at 1625. There is a subtle line at the distal radius that corresponds to area of maximal tenderness, concerning for nondisplaced fracture line. Left hand x-ray reviewed by me at 1625 shows no fracture Chest x-ray reviewed personally by me at 1625 shows no pneumothorax, no acute process EXAM: Lumbar Spine 3 Views CLINICAL INDICATION: Patient fell, pain COMPARISON: There is no previous study for comparison. FINDINGS: Three views of the lumbar spine reveal no fracture, compression deformity, or subluxation. The intervertebral disk spaces are preserved. The osseous structures appear intact and unremarkable. IMPRESSION: Negative lumbar spine radiographs. Electronically signed by: Rudy Carter MD 08/05/2020 4:49 PM [employer] EXAM: Head CLINICAL INDICATION: 59-year-old female status post fall with head injury and possible loss of consciousness. COMPARISON: None. TECHNIQUE: CT brain without contrast. This exam was performed according to our departmental dose optimization program which includes use of automated exposure control, adjustment of the mA and/or kV according to patient size and/or use of iterative reconstruction technique. FINDINGS: The ventricles, sulci, and cisterns are within normal limits. The more[place]-white matter differentiation is preserved. There is no mass effect, midline shift, intra- or extra-axial fluid collection/acute hemorrhage. The osseous structures are unremarkable. The paranasal sinuses and mastoid air cells are clear. IMPRESSION: No acute intracranial abnormalities. Electronically signed by: Zoe Franco MD 08/05/2020 4:45 PM [employer] EXAM: Wrist,Right 3 Views CLINICAL INDICATION: 59-year-old female status post fall injury. TECHNIQUE: Three views RIGHT wrist were obtained in AP, lateral and oblique projections COMPARISON: None. FINDINGS: The bones are diffusely demineralized. There is no fracture or dislocation. The joint spaces are preserved. No soft tissue abnormalities are seen. Linear density present at the level of the radiocarpal joint space suggesting chondrocalcinosis of uncertain etiology. IMPRESSION: No acute radiographic abnormality. Electronically signed by: Zoe Franco MD 08/05/2020 4:41 PM [employer] EXAM: Chest,1 View CLINICAL INDICATION: 59-year-old female status post fall injury. TECHNIQUE: Single view, AP portable chest was obtained. COMPARISON: 03/14/2020. FINDINGS: Unremarkable cardiac and mediastinal silhouette. Heart size is normal. Lungs are clear without focal opacity, pneumothorax or pleural effusions. RIGHT upper lobe opacity raises the concern for granuloma versus pulmonary nodule measuring 1 cm. The visualized bones are within normal limits, of chest radiograph technique, however if there is clinical concern for bone injury, dedicated rib series or CT chest is recommended. IMPRESSION: 1. No acute cardiopulmonary abnormalities. 2. RIGHT upper lobe opacity raises the concern for granuloma versus pulmonary nodule measuring 1 cm. Further evaluation with CT chest may be considered. Electronically signed by: Zoe Franco MD 08/05/2020 4:39 PM [employer] EXAM: Hand,Left 3 Views CLINICAL INDICATION: 59-year-old female status post fall injury. TECHNIQUE: Three views LEFT hand were obtained in AP, lateral and oblique projections COMPARISON: None. FINDINGS: The bones appear to be diffusely demineralized. There is no fracture or dislocation. The joint spaces are preserved. No soft tissue abnormalities are seen. IMPRESSION: No acute radiographic abnormality. Electronically signed by: Zoe Franco MD 08/05/2020 4:40 PM [employer] Laboratory Tests 08/05/20 08/05/20 08/05/20 15:54 16:17 16:17 WBC 5.7 RBC 4.94 Hgb 15.9 Hct 47.7 H MCV 96.7 MCH 32.3 H MCHC 33.4 RDW 13.2 Plt Count 192 MPV 8.7 Absolute Neuts (auto) 3.70 Absolute Lymphs (auto) 1.40 Absolute Monos (auto) 0.50 Absolute Eos (auto) 0.10 Absolute Basos (auto) 0.00 Neutrophils % 64.8 Lymphocytes % 24.2 Monocytes % 9.0 Eosinophils % 1.2 Basophils % 0.8 PT 9.6 INR < 1.00 Sodium Potassium Chloride Carbon Dioxide Anion Gap Calcium Troponin I Urine Color Yellow Urine Appearance Clear Urine pH 7.0 Ur Specific [place] 1.015 Urine Protein Negative Urine Glucose (UA) Negative Urine Ketones Negative Urine Blood Negative Urine Nitrite Negative Urine Bilirubin Negative Urine Urobilinogen 0.2 Ur Leukocyte Esterase Trace H Urine RBC 0 Urine WBC 1-3 Ur Epithelial Cells 0 Urine Bacteria 0 08/05/20 08/05/20 16:17 16:17 WBC RBC Hgb Hct MCV MCH MCHC RDW Plt Count MPV Absolute Neuts (auto) Absolute Lymphs (auto) Absolute Monos (auto) Absolute Eos (auto) Absolute Basos (auto) Neutrophils % Lymphocytes % Monocytes % Eosinophils % Basophils % PT INR Sodium 136 Potassium 4.5 Chloride 96 L Carbon Dioxide 30 Anion Gap 14.5 Calcium 9.1 Troponin I < 0.02 Urine Color Urine Appearance Urine pH Ur Specific [place] Urine Protein Urine Glucose (UA) Urine Ketones Urine Blood Urine Nitrite Urine Bilirubin Urine Urobilinogen Ur Leukocyte Esterase Urine RBC Urine WBC Ur Epithelial Cells Urine Bacteria Departure - Departure Clinical Impression: Fall at home Qualifiers: Encounter type: initial encounter Qualified Code(s): W19.XXXA - Unspecified fall, initial encounter Closed head injury Qualifiers: Encounter type: initial encounter Qualified Code(s): S09.90XA - Unspecified injury of head, initial encounter Distal radius fracture, right Qualifiers: Encounter type: initial encounter Fracture type: closed Fracture morphology: Colles' Qualified Code(s): S52.531A - Colles' fracture of right radius, initial encounter for closed fracture Sprain of hand, thumb, left Qualifiers: Encounter type: initial encounter Sprain of finger site: metacarpophalangeal joint Qualified Code(s): S63.642A - Sprain of metacarpophalangeal joint of left thumb, initial encounter Low back pain Qualifiers: Chronicity: acute Back pain laterality: right Sciatica presence: without sciatica Qualified Code(s): M54.5 - Low back pain Disposition: Discharge to Home or Self Care Condition: Fair Departure Forms: ED Discharge - Pt. Copy, Patient Portal Self Enrollment Instructions: DI for Trauma, Minor Head Injury (DC), Radius Fracture (DC) Diet: resume usual diet Activity: increase activity as tolerated Referrals: Jaimee Sullivan FNP [Primary Care Provider] - 1-5 Days Bethel Brandon MD [Active Staff] - 1-5 Days Prescriptions: HYDROcodone 5MG/APAP 325MG [[place] 5/325] 1 - 2 tablet PO Q6H PRN 5 Days #20 tab PRN Reason: Moderate To Severe Pain Methocarbamol [Robaxin] 750 mg PO Q6H PRN 5 Days #20 tab PRN Reason: Muscle Spasms Home Medications: Ambulatory Orders Pregabalin [Lyrica] 150 mg PO BID 03/22/14 Estradiol [Estrace] 1 mg PO DAILY 07/24/17 FLUoxetine HCL [Prozac] 10 mg PO DAILY 07/24/17 Metoclopramide Tab [Reglan Tab] 5 mg PO TIDFD 07/24/17 Pantoprazole Sodium 40 mg PO DAILY 07/24/17 Divalproex Sodium [Depakote ER] 1,000 mg PO BEDTIME 07/25/17 Cyclobenzaprine HCl [Flexeril] 10 mg PO BEDTIME 01/24/19 DULoxetine HCL [Cymbalta] 30 mg PO DAILY 01/24/19 Famotidine 40 mg PO DAILY 01/24/19 Polyethylene Glycol 3350 [Miralax] 17 gm PO DAILY 01/24/19 Potassium Chloride Microencaps [Klor-Con M10] 10 meq PO TID 01/24/19 Quetiapine Fumarate 25 mg PO BEDTIME 01/24/19 Acetaminophen W/ Codeine [Tylenol/Codeine #4 300-60 mg] 1 ea PO Q6H PRN #20 tab 06/19/19 Acetaminophen W/ Codeine [Tylenol W/ CODEINE #3] 1 ea PO Q6H PRN #20 02/01/20 HYDROcodone 5MG/APAP 325MG [[place] 5/325] 1 - 2 tablet PO Q6H PRN 5 Days #20 tab 08/05/20 Methocarbamol [Robaxin] 750 mg PO Q6H PRN 5 Days #20 tab 08/05/20 Additional Instructions: Keep splint dry. Use sling as needed for comfort, perform range of motion exercises at least 2-3 times daily to prevent "frozen shoulder". Be cautious when taking opiate pain medications as they will increase your risk for falls, do not drive/operate machinery/watch young children until you know how the medication will affect you. Take a stool softener daily, as the medication will make you constipated
[2020-08-05] MEDS ORDERED: SODIUM CHLORIDE 0.9% 1000ML 1,000 ML IVS PRN (15:47)
[2020-08-05] MEDS ORDERED: fentaNYL CITRATE INJ 50 MCG/ML 2 ML AMP IV ONE (15:47)
[2020-08-05] MEDS ORDERED: SODIUM CHLORIDE 0.9% (FLUSH) 10 ML SYG IV PRN (15:47)
--- NOTE | 2020-08-05 16:41 | RAD ---
EXAM: Chest,1 View CLINICAL INDICATION: 59-year-old female status post fall injury. TECHNIQUE: Single view, AP portable chest was obtained. COMPARISON: 03/14/2020. FINDINGS: Unremarkable cardiac and mediastinal silhouette. Heart size is normal. Lungs are clear without focal opacity, pneumothorax or pleural effusions. RIGHT upper lobe opacity raises the concern for granuloma versus pulmonary nodule measuring 1 cm. The visualized bones are within normal limits, of chest radiograph technique, however if there is clinical concern for bone injury, dedicated rib series or CT chest is recommended. IMPRESSION: 1. No acute cardiopulmonary abnormalities. 2. RIGHT upper lobe opacity raises the concern for granuloma versus pulmonary nodule measuring 1 cm. Further evaluation with CT chest may be considered. Electronically signed by: Zoe Franco MD 08/05/2020 4:39 PM [facility]
--- NOTE | 2020-08-05 16:42 | RAD ---
EXAM: Hand,Left 3 Views CLINICAL INDICATION: 59-year-old female status post fall injury. TECHNIQUE: Three views LEFT hand were obtained in AP, lateral and oblique projections COMPARISON: None. FINDINGS: The bones appear to be diffusely demineralized. There is no fracture or dislocation. The joint spaces are preserved. No soft tissue abnormalities are seen. IMPRESSION: No acute radiographic abnormality. Electronically signed by: Zoe Franco MD 08/05/2020 4:40 PM [facility]
--- NOTE | 2020-08-05 16:43 | RAD ---
EXAM: Wrist,Right 3 Views CLINICAL INDICATION: 59-year-old female status post fall injury. TECHNIQUE: Three views RIGHT wrist were obtained in AP, lateral and oblique projections COMPARISON: None. FINDINGS: The bones are diffusely demineralized. There is no fracture or dislocation. The joint spaces are preserved. No soft tissue abnormalities are seen. Linear density present at the level of the radiocarpal joint space suggesting chondrocalcinosis of uncertain etiology. IMPRESSION: No acute radiographic abnormality. Electronically signed by: Zoe Franco MD 08/05/2020 4:41 PM [facility]
--- NOTE | 2020-08-05 16:46 | CT ---
EXAM: Head CLINICAL INDICATION: 59-year-old female status post fall with head injury and possible loss of consciousness. COMPARISON: None. TECHNIQUE: CT brain without contrast. This exam was performed according to our departmental dose optimization program which includes use of automated exposure control, adjustment of the mA and/or kV according to patient size and/or use of iterative reconstruction technique. FINDINGS: The ventricles, sulci, and cisterns are within normal limits. The moreno-white matter differentiation is preserved. There is no mass effect, midline shift, intra- or extra-axial fluid collection/acute hemorrhage. The osseous structures are unremarkable. The paranasal sinuses and mastoid air cells are clear. IMPRESSION: No acute intracranial abnormalities. Electronically signed by: Zoe Franco MD 08/05/2020 4:45 PM [facility]
--- NOTE | 2020-08-05 16:51 | RAD ---
EXAM: Lumbar Spine 3 Views CLINICAL INDICATION: Patient fell, pain COMPARISON: There is no previous study for comparison. FINDINGS: Three views of the lumbar spine reveal no fracture, compression deformity, or subluxation. The intervertebral disk spaces are preserved. The osseous structures appear intact and unremarkable. IMPRESSION: Negative lumbar spine radiographs. Electronically signed by: Rudy Carter MD 08/05/2020 4:49 PM [facility]
[2020-08-05 18:11] VITALS: BP 117/76; TEMP 98.9; O2SAT 92
== END 2020-08-05 18:03 | disposition home or self-care (01) ==
LOC: ER 15:24
DX: S09.90XA Unspecified injury of head, initial encounter (principal); S52.501A Unspecified fracture of the lower end of right radius, initial encounter for closed fracture; S63.642A Sprain of metacarpophalangeal joint of left thumb, initial encounter; M54.5 Low back pain; R91.1 Solitary pulmonary nodule; J44.9 Chronic obstructive pulmonary disease, unspecified; K21.9 Gastro-esophageal reflux disease without esophagitis; W18.39XA Other fall on same level, initial encounter; Y92.9 Unspecified place or not applicable; Z85.828 Personal history of other malignant neoplasm of skin; Z87.891 Personal history of nicotine dependence; Z79.899 Other long term (current) drug therapy; Z88.1 Allergy status to other antibiotic agents
CPT/HCPCS: 36415; 70450; 71045; 72100; 73110; 73130; 80053; 81001; 84484; 85025; 85610; 93005; 94760; A4216; J3010; J7030

== ENCOUNTER → 2020-08-14 | Outpatient (CLI) | payer MEDICARE, MEDICAID ==
--- NOTE | 2020-08-14 09:11 | RAD ---
EXAM: Wrist,Right 3 Views INDICATION: 59 years Female, PN IN RIGHT WRIST COMPARISON: 3 views of the right wrist 08/05/2020 FINDINGS: 3 views of the right wrist were performed. Diffuse osteopenia. No definite acute displaced fracture is identified, although the evaluation for nondisplaced fracture is limited by osteopenia. No joint dislocation. Mild to moderate degenerative changes in the wrist. No destructive osseous lesion. IMPRESSION: [id number] degenerative changes in the right wrist without apparent fracture or dislocation. Note is made that evaluation for nondisplaced fracture is limited by osteopenia. Electronically signed by: Deepa Reveles MD 08/14/2020 9:09 AM [facility]
== END ==
LOC: RAD 08:10
PROVIDERS: ATTEND Orthopaedic Surgery
DX: M19.031 Primary osteoarthritis, right wrist (principal); M85.831 Other specified disorders of bone density and structure, right forearm